=== PATIENT | female | born 1960 | race Caucasian/White ===

== ENCOUNTER 2016-11-04 10:49 | Emergency (ER) | payer BC, OTHER ==
[~2016-11-04 10:49] MED LIST: CIPR500T4 PO; INSU100V3 SQ; KETO10 PO; LEVA250T; LORT5TAB PO; PERC5TAB12 PO; ZOFR4TAB3 SL
[2016-11-04 10:51] VITALS: BP 225/107; PULSE 108; RESP 18; TEMP 97.5; O2SAT 96
[2016-11-04 11:05] VITALS: BP 160/91; PULSE 104; RESP 23; O2SAT 98
[2016-11-04] MEDS ORDERED: SODIUM CHLOR 0.9% 1000 ML INJ 1,000 ML IV SCH (11:16)
--- NOTE | 2016-11-04 11:18 | PD ---
HPI Chief Complaint: Abdominal Pain Time Seen by Provider: 11:17 Travel History International Travel<30 days: No Contact w/Intl Traveler<30days: No Traveled to known affect area: No History of Present Illness HPI 56 year old female with history of Crohn's disease, diabetes, hypertension, presents to the emergency department for evaluation of abdominal pain, nausea, vomiting worsening over the last day. Pain is inferior to the umbilicus, aching , cramping, constant. Patient states that she has been having normal bowel movements which are loose typically. No hematochezia. Emesis has been without amber red blood or coffee-ground appearance. Patient states she believes her Crohn's is "acting up." Denies any recent illnesses, fever, chills. She reports no urinary symptoms. No cough or chest congestion. No shortness of breath. No chest pain. Patient has history of cholecystectomy. No other symptoms reported this time. PFSH Past Medical History Arthritis: No Asthma: No Autoimmune Disease: No Blood Disorders: No Anxiety: No Depression: No Heart Rhythm Problems: No Cancer: No Cardiovascular Problems: No High Cholesterol: No Chemotherapy: No Chest Pain: No Congestive Heart Failure: No COPD: No Cerebrovascular Accident: No Diabetes: Yes Diminished Hearing: No Endocrine: Yes Gastrointestinal Disorders: Yes (CHROHN'S) GERD: Yes Glaucoma: No Genitourinary: Yes Headaches: No Hepatitis: No Hiatal Hernia: No Hypertension: Yes Immune Disorder: No Kidney Stones: Yes (DIAGNOSED ON December IN ED) Musculoskeletal: Yes Neurologic: No Psychiatric: No Reproductive: No Respiratory: No Immunizations Current: Yes Migraines: Yes (HX) Myocardial Infarction: No Radiation Therapy: No Renal Failure: No Seizures: No Sickle Cell Disease: No Sleep Apnea: No Thyroid Disease: No Ulcer: No Menopausal: Yes : 1 : 1 Past Surgical History Abdominal Surgery: Yes (GALLBLADDER REMOVED, COLON RESECTION) AICD: No Appendectomy: No Arteriovenous Shunt: No Body Medical Devices: CHRONS DISEASE Cardiac Surgery: No Cholecystectomy: Yes Ear Surgery: No Endocrine Surgery: No Eye Surgery: No Genitourinary Surgery: No Gynecologic Surgery: No Insulin Pump: No Joint Replacement: No Neurologic Surgery: Yes (NECK SURGERY) Oral Surgery: No Pacemaker: No Thoracic Surgery: No Other Surgery: Yes (TENDON RELEASE LEFT THUMB) Social History Alcohol Use: Yes (weekends (5-6 tonight)) Tobacco Use: Yes (1/2 TO 1 PPD) Substance Use: No Allergies-Medications (Allergen,Severity, Reaction): Coded Allergies: Remicade (Verified Allergy, Severe, Anaphylaxis, 01/24/16) Azathioprine Sodium (Verified Allergy, Intermediate, HIVES, 01/24/16) Reported Meds & Prescriptions Reported Meds & Active Scripts Active Phenergan (Promethazine HCl) 25 Mg Tab 25 Mg PO Q6H PRN Zofran ODT (Ondansetron HCl) 4 Mg Tab 4 Mg SL Q4-6H PRN FOR NAUSEA/VOMITING Cipro (Ciprofloxacin HCl) 500 Mg Tab 500 Mg PO BID Percocet 5-325 mg (Oxycodone/Acetaminophen) 1 Tab 1 Tab PO Q4-6H PRN Zofran ODT (Ondansetron HCl) 4 Mg Tab 4 Mg SL Q6H PRN FOR NAUSEA/VOMITING Toradol (Ketorolac Tromethamine) 10 Mg Tab 10 Mg PO Q6 Levaquin 250 Mg Tab (Levofloxacin) 250 Mg Tab 250 Mg .XX DAILY Percocet 5-325 mg (Oxycodone/Acetaminophen) Oxycodone 5/325 Acetaminophen Tab 1 Tab PO Q4H PRN Reported Novolin N U-100 (Insulin Human Nph) Inj 15 Units SQ BID Lortab 5/500 (Acetaminophen/Hydrocodone Bitart) 5 Mg/500 Mg Tab 1-2 Tab PO Q4 FOR PAIN Review of Systems Except as stated in HPI: all other systems reviewed are Neg Physical Exam Narrative GENERAL: Well-nourished female patient, sitting up in bed, in no acute distress. SKIN: Warm and dry. HEAD: Atraumatic. Normocephalic. EYES: Pupils equal and round. No scleral icterus. No injection or drainage. ENT: No nasal bleeding or discharge. Mucous membranes pink and moist. NECK: Trachea midline. No JVD. CARDIOVASCULAR: Tachycardic rate and rhythm. No murmur appreciated. RESPIRATORY: No accessory muscle use. Clear to auscultation. Breath sounds equal bilaterally. GASTROINTESTINAL: Abdomen soft, nondistended. Suprapubic tenderness to palpation. No rebound tenderness. No guarding. Hepatic and splenic margins not palpable. MUSCULOSKELETAL: No obvious deformities. No clubbing. No cyanosis. No edema. NEUROLOGICAL: Awake and alert. No obvious cranial nerve deficits. Motor grossly within normal limits. Normal speech. PSYCHIATRIC: Appropriate mood and affect; insight and judgment normal. Data Data Last Documented VS Vital Signs Date Time Temp Pulse Resp B/P Pulse Ox O2 Delivery O2 Flow Rate FiO2 11/04/16 15:00 74 16 131/60 98 Room Air 11/04/16 10:51 97.5 Orders Complete Blood Count With Diff (11/04/16 11:16) Comprehensive Metabolic Panel (11/04/16 11:16) Lipase (11/04/16 11:16) Prothrombin Time / Inr (Pt) (11/04/16 11:16) Act Partial Throm Time (Ptt) (11/04/16 11:16) Urinalysis - C+S If Indicated (11/04/16 11:16) Ct Abd/Pel W Iv Contrast(Rout) (11/04/16 11:16) Iv Access Insert/Monitor (11/04/16 11:16) Ecg Monitoring (11/04/16 11:16) Oximetry (11/04/16 11:16) Ondansetron Inj (Zofran Inj) (11/04/16 11:30) Sodium Chlor 0.9% 1000 Ml Inj (Ns 1000 M (11/04/16 11:16) Sodium Chloride 0.9% Flush (Ns Flush) (11/04/16 11:30) Electrocardiogram (11/04/16 11:16) Ketorolac Inj (Toradol Inj) (11/04/16 11:30) Morphine Inj (Morphine Inj) (11/04/16 12:45) Iohexol 350 Inj (Omnipaque 350 Inj) (11/04/16 13:18) Prochlorperazine Inj (Compazine Inj) (11/04/16 14:15) Diphenhydramine Inj (Benadryl Inj) (11/04/16 14:15) Labs Laboratory Tests Test 11/04/16 11/04/16 11/04/16 11:30 12:00 14:00 White Blood Count 8.2 TH/MM3 Red Blood Count 4.93 MIL/MM3 Hemoglobin 15.1 GM/DL Hematocrit 44.1 % Mean Corpuscular Volume 89.5 FL Mean Corpuscular Hemoglobin 30.6 PG Mean Corpuscular Hemoglobin 34.2 % Concent Red Cell Distribution Width 13.1 % Platelet Count 221 TH/MM3 Mean Platelet Volume 7.7 FL Neutrophils (%) (Auto) 67.9 % Lymphocytes (%) (Auto) 21.9 % Monocytes (%) (Auto) 7.0 % Eosinophils (%) (Auto) 2.3 % Basophils (%) (Auto) 0.9 % Neutrophils # (Auto) 5.6 TH/MM3 Lymphocytes # (Auto) 1.8 TH/MM3 Monocytes # (Auto) 0.6 TH/MM3 Eosinophils # (Auto) 0.2 TH/MM3 Basophils # (Auto) 0.1 TH/MM3 CBC Comment DIFF FINAL Differential Comment Sodium Level 136 MEQ/L Potassium Level 3.4 MEQ/L Chloride Level 102 MEQ/L Carbon Dioxide Level 23.2 MEQ/L Anion Gap 11 MEQ/L Blood Urea Nitrogen 9 MG/DL Creatinine 1.07 MG/DL Estimat Glomerular Filtration 53 ML/MIN Rate Random Glucose 301 MG/DL Calcium Level 8.4 MG/DL Total Bilirubin 0.6 MG/DL Aspartate Amino Transf 18 U/L (AST/SGOT) Alanine Aminotransferase 31 U/L (ALT/SGPT) Alkaline Phosphatase 96 U/L Total Protein 7.2 GM/DL Albumin 3.4 GM/DL Lipase 181 U/L Prothrombin Time 10.8 SEC Prothromb Time International 1.0 RATIO Ratio Activated Partial 26.5 SEC Thromboplast Time Urine Color YELLOW Urine Turbidity CLEAR Urine pH 6.0 Urine Specific [place] GREATER THAN 1.050 Urine Protein 30 mg/dL Urine Glucose (UA) 1000 mg/dL Urine Ketones NEG mg/dL Urine Occult Blood NEG Urine Nitrite NEG Urine Bilirubin NEG Urine Urobilinogen LESS THAN 2.0 MG/DL Urine Leukocyte Esterase NEG Urine RBC 2 /hpf Urine WBC 5 /hpf Urine Squamous Epithelial 1 /hpf Cells Urine Mucus FEW /lpf Microscopic Urinalysis Comment CULT NOT INDICATED MDM Medical Decision Making Medical Screen Exam Complete: Yes Emergency Medical Condition: Yes Medical Record Reviewed: Yes Differential Diagnosis Crohn's exacerbation versus gastroenteritis versus gastritis versus obstruction Narrative Course 56 year-old female presents to emergency department for evaluation of abdominal pain, nausea, vomiting worsening over the last day. She was given antiemetics and IV fluid here in the emergency department. CBC is without concern. CMP is with hyperglycemia 301, otherwise without acute concern. Urinalysis with 3 proteinuria, without glucosuria, ischemia this. Specific gravity is 1.050. CT imaging of the abdomen and pelvis shows a 3.2 x 3.4 cm heterogeneous enhancing left renal mass highly suspicious for malignancy. There is a portion of this mass which extends superiorly up into the renal hilum as well as such radiology does not believe be amenable to cryoablation. There is a small ventral hernia. No findings to indicate bowel obstruction. I discussed the patient my attending physician Dr. Rich advised oncology consult. I discussed the patient with Dr. Woods, oncology on-call. Due to the area being not amenable to cryoablation, he defers to urology. I discussed the patient was Dr. Lopez, he states this can be followed up outpatient. The patient is provided contact information to his office. She has not vomited since her second dose of antibiotics. She agrees to follow-up and will return immediately with any acute worsening of symptoms. Diagnosis Primary Impression: Nausea & vomiting Qualified Code: R11.14 - Bilious vomiting with nausea Additional Impressions: Left renal mass History of Crohn's disease Referrals: Kd Lopez MD call for appointment It is really important that you contact the office tomorrow for an appointment for follow-up in regards to your CT scan. Primary Care Physician Patient Instructions: Acute Nausea and Vomiting (ED), General Instructions Additional Instructions: Follow-up with Dr. Lopez , urologist in regards to the mass identified on your left kidney Follow-up with your primary care provider Maintain adequate oral hydration Return immediately to the emergency department with any acute worsening of symptoms Med/Other Pt SpecificInfo: Prescription(s) given Scripts Promethazine (Phenergan)25 Mg Tab25 Mg PO Q6H PRN (Nausea/Vomiting) #15 TAB Ref 0 Prov:Tita Paez 11/04/16 Disposition: 01 DISCHARGE HOME Condition: Stable Tita Paez Nov 04, 2016 11:18
[2016-11-04 11:19] VITALS: RESP 16; O2SAT 98
[2016-11-04] MEDS: SODIUM CHLORIDE 0.9% FLUSH 10 ML FLUSH IV FLUSH PRN ×3 (11:25→14:24)
[2016-11-04] MEDS ORDERED: ONDANSETRON HCL 4 MG/2 ML VIAL IVP ONE (11:30)
[2016-11-04] MEDS ORDERED: KETOROLAC TROMETHAMINE 30 MG/ML (IVP) VIAL IVP ONE (11:30)
[2016-11-04 11:44] LABS: AUTOMATED NEUTROPHIL # 5.6 TH/MM3 (1.8-7.7); BASOPHIL # 0.1 TH/MM3 (0-0.2); BASOPHIL % 0.9 % (0.0-2.0); EOSINOPHIL # 0.2 TH/MM3 (0-0.4); EOSINOPHIL % 2.3 % (0.0-4.0); HEMATOCRIT 44.1 % (35.0-46.0); HEMO FLAGS DIFF FINAL; LYMPH % 21.9 % (9.0-44.0); LYMPHOCYTE # 1.8 TH/MM3 (1.0-4.8); MEAN CELL VOLUME 89.5 FL (80.0-100.0); MEAN CORPUSCULAR HEMOGLOBIN 30.6 PG (27.0-34.0); MEAN CORPUSCULAR HGB CONC 34.2 % (32.0-36.0); NEUT % 67.9 % (16.0-70.0); PLATELET COUNT 221 TH/MM3 (150-450); RED BLOOD COUNT 4.93 MIL/MM3 (4.00-5.30); RED CELL DISTRIBUTION WIDTH 13.1 % (11.6-17.2); WHITE BLOOD COUNT 8.2 TH/MM3 (4.0-11.0)
[2016-11-04 12:00] VITALS: BP 175/91; PULSE 104; RESP 22; O2SAT 98
[2016-11-04 12:02] LABS: ANION GAP 11 MEQ/L (5-15); AST (GOT) 18 U/L (15-37); BICARBONATE 23.2 MEQ/L (21.0-32.0); BLOOD UREA NITROGEN 9 MG/DL (7-18); CHLORIDE 102 MEQ/L (98-107); GLOMERULAR FILTRATION RATE 53 ML/MIN (>89); POTASSIUM 3.4 MEQ/L (3.5-5.1); SODIUM (NA) 136 MEQ/L (136-145)
[2016-11-04 12:05] LABS: ALKALINE PHOSPHATASE 96 U/L (45-117); ALT (GPT) 31 U/L (10-53); TOTAL BILIRUBIN ADULT 0.6 MG/DL (0.2-1.0)
[2016-11-04 12:29] LABS: APTT (PATIENT) 26.5 SEC (24.3-30.1); PROTHROMBIN TIME - PATIENT 10.8 SEC (9.8-11.6)
[2016-11-04] MEDS ORDERED: MORPHINE SULFATE 4 MG/ML INJ IV PUSH ONE (12:45)
[2016-11-04] MEDS ORDERED: IOHEXOL 350 MG/ML 10 ML VIAL (for RAD DIAG) IV ONE (13:18)
--- NOTE | 2016-11-04 13:31 | RADRPT ---
EXAM DATE/TIME: 11/04/2016 12:56 [facility] COMPARISON: CT ABDOMEN & PELVIS W CONTRAST, January 24, 2016, 23:46. INDICATIONS : Lower abdomen pain with nausea and vomiting since Wednesday. IV CONTRAST: 94 cc Omnipaque 350 (iohexol) IV ORAL CONTRAST: No oral contrast ingested. RADIATION DOSE: 21.99 CTDIvol (mGy) MEDICAL HISTORY : Crohn's disease. Hypertension. Diabetes SURGICAL HISTORY : Cholecystectomy. ENCOUNTER: Initial ACUITY: 4 - 6 days PAIN SCALE: 10/10 LOCATION: Abdomen TECHNIQUE: Volumetric scanning of the abdomen and pelvis was performed. Using automated exposure control and ad justment of the mA and/or kV according to patient size, radiation dose was kept as low as reasonably achievable to obtain optimal diagnostic quality images. FINDINGS: The limited portion of the lung base visualized is clear. The appearance of the liver, spleen, pancreas, adrenal glands and right kidney is within normal limit s. The patient is post cholecystectomy. The exam demonstrates a 3.2 x 3.4 cm heterogeneously enhancing mass in the lower pole of the left kid abhay. This is highly suspicious for malignancy. This has slightly increased in size compared to previo us dated 01/24/16. There is no free intraperitoneal air. No free intraperitoneal fluid is identified. There is no retrop eritoneal lymphadenopathy. The aorta is normal in caliber. The visualized loops of small and large stephanie wel demonstrate changes suggesting previous partial colectomy but are otherwise unremarkable in appea lise. No findings to indicate bowel obstruction are seen. There is a small umbilical hernia in anterior abdominal wall. There is no free fluid within the pelvis. No iliac or inguinal adenopathy is present. There are degenerative changes throughout the lumbar spine. CONCLUSION: 1. 3.2 x 3.4 cm heterogeneous enhancing left renal mass highly suspicious for malignancy. There is a portion of this mass which extends superiorly up into the renal hilum as well as such, I do not belie ve it would be amenable to cryoablation. 2. Small ventral hernia. 3. No findings to indicate bowel obstruction. Raj Farnsworth MD on November 04, 2016 at 13:24 Board Certified Radiologist. This report was verified electronically.
[2016-11-04 14:00] VITALS: BP 152/67; PULSE 84; RESP 20; O2SAT 98
[2016-11-04] MEDS ORDERED: diphenhydrAMINE HCL 50 MG/ML VIAL IV PUSH ONE (14:15)
[2016-11-04] MEDS ORDERED: PROCHLORPERAZINE INJ 10 MG/2 ML VIAL IVS ONE (14:15)
[2016-11-04 14:59] LABS: BLOOD, URINE NEG (NEG); GLUCOSE,URINE 1000 mg/dL (NEG); KETONE, URINE NEG (NEG); MUCUS URINE FEW /lpf (OCC); NITRITE,URINE NEG (NEG); SQUAMOUS EPITHELIAL CELL URINE 1 /hpf (0-5); URINE COLOR YELLOW (YELLW/STRAW)
[2016-11-04 15:00] VITALS: BP 131/60; PULSE 74; RESP 16; O2SAT 98
[2016-11-04 15:00] LABS: COMMENT (UR) CULT NOT INDICATED; CULTURE IF INDICATED CULT NOT INDICATED
[2016-11-04] MEDS ORDERED: PROM25TA5 PO (15:10)
--- NOTE | 2016-11-05 14:22 | EKG ---
Date Performed: 11/04/2016 Time Performed: 11:33:42 PTAGE: 56 years EKG: Sinus rhythm RIGHT ATRIAL ENLARGEMENT POSSIBLE LEFT ATRIAL ENLARGEMENT BORDERLINE LEFT AXIS DEVIATION INCOMPLETE RIGHT BUNDLE BRANCH BLOCK Compared to the previous tracing axis has shifted leftward and incomplete R ight bundle branch block is new ABNORMAL ECG PREVIOUS TRACING : 03/12/2011 14.11 DOCTOR: Papito Zapata Interpretating Date/Time 11/05/2016 14:21:32
[2016-11-10] MEDS ORDERED: ZOFR4TAB PO (10:10)
[2016-11-10] MEDS ORDERED: NOVOLOGP2 SQ (10:10)
[2016-11-10] MEDS ORDERED: HYDR-2376 PO (10:10)
== END 2016-11-04 15:33 | disposition home or self-care (01) ==
LOC: NEPE 10:49
DX: R11.2 Nausea with vomiting, unspecified (principal); N28.89 Other specified disorders of kidney and ureter; K50.90 Crohn's disease, unspecified, without complications; E11.9 Type 2 diabetes mellitus without complications; I10 Essential (primary) hypertension; F17.210 Nicotine dependence, cigarettes, uncomplicated; R94.31 Abnormal electrocardiogram [ECG] [EKG]
CPT/HCPCS: 74177; 80053; 81001; 83690; 85025; 85610; 85730; 93005; 96361; 96374; 96375; 99284; J0780; J1200; J1885; J2270; J2405; J7030; Q9967

== ENCOUNTER 2016-11-24 13:36 | Inpatient (IN) | payer OTHER ==
[~2016-11-24] VITALS: Ht 167.6 cm; Wt 87.0 kg
[~2016-11-24 13:36] MED LIST changes: -CIPR500T4 PO; -INSU100V3 SQ; -KETO10 PO; -LEVA250T; -LORT5TAB PO; -PERC5TAB12 PO; +ZOFR4TAB PO; -ZOFR4TAB3 SL
[2016-11-25] MEDS ORDERED: ASAC800T PO (07:16)
[2016-11-25] MEDS ORDERED: HYDR1CAP PO (07:16)
[2016-11-25] MEDS ORDERED: NOVO7030P2 SQ (07:16)
[2016-12-22 10:00] VITALS: BP 165/85; PULSE 96; RESP 18; TEMP 98.6; O2SAT 96
[2016-12-22] MEDS ORDERED: SODIUM CHLORID 0.9% 500 ML IV PRN (10:45)
[2016-12-22] MEDS ORDERED: POVIDONE IODINE 5% (ANTISEPSIS KIT) 4 APPLICATIONS EACH NARE PRN (10:45)
[2016-12-22] MEDS ORDERED: LACTATED RINGER'S 1000 ML IV PRN (10:45)
[2016-12-22] MEDS ORDERED: INSULIN HUMAN REGULAR 1,000 UNITS/10 ML VIAL SQ PRN (10:45)
[2016-12-22] MEDS ORDERED: METOPROLOL TARTRATE 25 MG TAB PO PRN (10:45)
[2016-12-22] MEDS ORDERED: CHLORHEXIDINE GLUCONATE 2 % 1 PACK (2 CLOTHS) TOPICAL PRN (10:45)
[2016-12-22] MEDS ORDERED: ceFAZolin 2 GM PREMIX 50 ML ONE (10:48)
[2016-12-22] MEDS ORDERED: fentaNYL CITRATE 250 MCG/5 ML AMP ONE ×2 (11:25→13:46)
[2016-12-22] MEDS ORDERED: FAMOTIDINE 20 MG/2 ML VIAL ONE (11:25)
[2016-12-22] MEDS ORDERED: MIDAZOLAM HCL 2 MG/2 ML VIAL ONE (11:25)
[2016-12-22] MEDS ORDERED: ACETAMINOPHEN 1000 MG/100 ML VIAL IV ONE (11:25)
[2016-12-22] MEDS ORDERED: DICLOFENAC SODIUM 37.5 MG/ML VIAL IV PUSH ONE (11:25)
[2016-12-22] MEDS ORDERED: DEXAMETHASONE SOD PHOS 4 MG/ML VIAL ONE (11:26)
[2016-12-22] MEDS ORDERED: HYDROmorphone HCL PF 2 MG/ML VIAL ONE ×2 (11:26→15:19)
[2016-12-22] MEDS ORDERED: ONDANSETRON HCL 4 MG/2 ML VIAL IV PUSH ONE (12:00)
[2016-12-22] MEDS ORDERED: PROPOFOL 200 MG/20 ML AMP IV ONE (12:00)
[2016-12-22] MEDS ORDERED: LACTATED RINGER'S 1000 ML INJ 1,000 ML IV ONE (12:00)
[2016-12-22] MEDS ORDERED: PHENYLEPH/NS 1000 MCG/10 ML SYR IV ONE (12:00)
--- NOTE | 2016-12-22 17:13 | PD.OP ---
Operative Report Date of Surgery: December 22, 2016 Preoperative Diagnosis: (1) Left renal mass Postoperative Diagnosis: (1) Left renal mass Procedure: Robot-assisted laparoscopic left radical nephrectomy Anesthesia: General Surgeon: Kd Lopez Postal Carrier(s): David Ornelas Operation and Findings: Indication for procedure: Case of a pleasant 56-year-old female with a 3.4 cm left renal mass who presents today to undergo a robot-assisted laparoscopic left radical nephrectomy. The mass was biopsied and confirmed to be a renal cell carcinoma. Operative procedure in detail: Patient was brought to the operating suite and placed supine on the OR table. She was then placed under general endotracheal anesthesia. She was next repositioned in the right lateral recumbent position and held in place with a beanbag. The surgical table was flexed to drop the patient's pelvis and gain greater surface area to place the laparoscopic ports. After appropriate timeout was undertaken I proceeded with placement of the robotic ports. The camera port was placed using the visual obturator just superior and lateral to the umbilicus to the left of the midline without difficulty. The remaining 3 robotic arm ports as well as the children's nursery assistant port were then placed under direct vision. The per diem physical therapist assistant port was placed at the level of the umbilicus. The FloSeal device was connected at the children's nursery assistant port and pneumoperitoneum was maintained at 15 mmHg. I next repositioned myself over at the robotic console and Dr. David Ornelas remained at the bedside to academic support assistant. I next proceeded with mobilizing the left colon along the line of Toldt and reflected it medially to expose the retroperitoneum. The kidney was identified and sharply and bluntly mobilized. The ureter was identified and tracked upwards towards the hilum to identify the renal vasculature. The renal hilar vessels were then divided and ligated utilizing the endo-surgical stapling device. The ureter was next transected between Hemoloc clips. 3 clips were utilized with one on the specimen side. The kidney was next further mobilized avulsed attachments and the left adrenal gland was identified and spared. The specimen was next placed in a Endo Catch specimen bag. The pneumoperitoneum was dropped down to 5 illness mercury and careful inspection was made. There was a small maybe 3 mm red noted within the splenic capsule which was oozing a small amount of blood. The site was covered with Surgicel and Erika applied with excellent hemostasis. No other evidence of active bleeding was noted. At this point in time the robot was undocked and I repositioned myself over at the bedside after scrubbing for a second time. The children's nursery assistant port site at the midline level was extended inferiorly for a total distance of approximately 4 cm and the surgical specimen within the Endo Catch bag was delivered through this site. A 10 cm KELLI drain was placed via one of the robotic port sites to the left lower quadrant and gently finger guided in proper position and the port removed. The drain was secured to the skin with 2-0 nylon suture material. The midline incision was then closed by reapproximating the fascia utilizing #1 PDS suture. The skin edges were then closed in subcuticular fashion using 4-0 undyed Vicryl. The remaining 2 robotic arm port sites within close by reapproximating the skin with 4. 0 Vicryl as well in subcuticular fashion. Steri-Strips were applied at the wound sites. The patient tolerated the procedure without complications and was transferred to the PACU in satisfactory condition. Total estimated blood loss was between 500 and 600 cc. Kd Lopez MD December 22, 2016 17:13
[2016-12-22] MEDS ORDERED: GLUCAGON 1 MG/ML VIAL OTHER PRN (17:15)
[2016-12-22] MEDS ORDERED: SODIUM CHLORIDE 0.9% FLUSH 10 ML FLUSH IV FLUSH PRN (17:15)
[2016-12-22] MEDS ORDERED: DEXTROSE 50% IN WATER 50 ML VIAL(D50) IV PUSH PRN (17:15)
[2016-12-22] MEDS ORDERED: ONDANSETRON HCL 4 MG/2 ML VIAL IV PUSH PRN (17:15)
[2016-12-22] MEDS ORDERED: NALOXONE HCL 0.4 MG/ML AMP IV PRN ×2 (17:15)
[2016-12-22] MEDS ORDERED: Post-op Orders (for Pharmacy) MISC XX ONE (17:15)
[2016-12-22] MEDS ORDERED: DO NOT ADM ANY ANTICOAGULANT DRUGS PRN (18:00)
--- NOTE | 2016-12-22 18:08 | RADRPT ---
EXAM DATE/TIME: 12/22/2016 17:48 [facility] COMPARISON: No previous studies available for comparison. INDICATIONS : Central line placement. MEDICAL HISTORY : None. SURGICAL HISTORY : None. ENCOUNTER: Initial ACUITY: 1 day PAIN SCORE: Non-responsive. LOCATION: Bilateral chest FINDINGS: Right neck central line is present in good position with tip overlying SVC. No evidence of pneumothor ax or other complication of placement. Lungs are symmetrically aerated and clear. No pleural effusion is present. The cardiac contours are satisfactory. CONCLUSION: Satisfactory central line position. No complication. Kofi Shine MD on December 22, 2016 at 18:05 Board Certified Radiologist. This report was verified electronically.
[2016-12-22] MEDS: LACTATED RINGER'S 1000 ML INJ 1,000 ML IV SCH (18:09)
[2016-12-22] MEDS: HYDROmorphone HCL PCA 6 MG/30 ML IV SCH ×2 (18:09→23:28)
[2016-12-22] MEDS ORDERED: *morphine SULFATE 8 MG/ML PERIprocedure ONLY ONE (18:15)
[2016-12-22 20:00] VITALS: BP 121/56; PULSE 84; RESP 19; TEMP 98.4; O2SAT 95
[2016-12-22] MEDS: INSULIN HUMAN NPH/R 70/30 1,000 UNITS/10 ML VIAL SQ SCH (21:00)
[2016-12-22] MEDS: INSULIN NovoLIN REGULAR SUPPLEMENTAL SCALE SQ SCH (21:00)
[2016-12-22 21:20] VITALS: O2SAT 98
[2016-12-22] MEDS: SODIUM CHLORIDE 0.9% FLUSH 10 ML FLUSH IV FLUSH SCH (21:30)
[2016-12-22] MEDS: PCA - TOTAL MG DILAUDID DELIVERED PER SHIFT OTHER SCH (22:00)
[2016-12-22 23:30] VITALS: BP 102/61; PULSE 78; RESP 18; TEMP 98; O2SAT 96
[2016-12-23] VITALS (7 sets, daily range): BP systolic 110–173; BP diastolic 58–71; PULSE 72–102; RESP 17–20; TEMP 97.5–100.9; O2SAT 91–98
[2016-12-23] MEDS: LACTATED RINGER'S 1000 ML INJ 1,000 ML IV SCH ×3 (01:47→16:06)
[2016-12-23] MEDS: PCA - TOTAL MG DILAUDID DELIVERED PER SHIFT OTHER SCH ×3 (06:00→22:00)
[2016-12-23 06:32] LABS: HEMATOCRIT 34.7 % (35.0-46.0); REVIEW FLAG FINAL
[2016-12-23] MEDS: INSULIN NovoLIN REGULAR SUPPLEMENTAL SCALE SQ SCH ×4 (06:36→22:08)
[2016-12-23 07:00] LABS: BICARBONATE 29.5 MEQ/L (21.0-32.0); POTASSIUM 3.8 MEQ/L (3.5-5.1)
[2016-12-23] MEDS: MESALAMINE HD 800 MG DELAYED RELEASE TAB PO SCH ×3 (07:57→16:03)
[2016-12-23] MEDS: INSULIN HUMAN NPH/R 70/30 1,000 UNITS/10 ML VIAL SQ SCH ×2 (08:00→22:08)
[2016-12-23] MEDS: SODIUM CHLORIDE 0.9% FLUSH 10 ML FLUSH IV FLUSH SCH ×2 (08:05→19:45)
[2016-12-23] MEDS: HYDROmorphone HCL PCA 6 MG/30 ML IV SCH (11:11)
--- NOTE | 2016-12-23 12:09 | HHI.PR ---
Subjective Patient symptoms today Postoperative day #1 Pain adequately controlled Feels thirsty Passing flatus, denies bowel movement Has been ambulating Objective Vital Signs Vital Signs Date Time Temp Pulse Resp B/P Pulse Ox O2 Delivery O2 Flow Rate FiO2 12/23/16 08:00 97.9 74 17 110/58 96 12/23/16 06:00 16 12/23/16 04:12 97.5 72 19 117/59 98 12/22/16 23:30 98.0 78 18 102/61 96 12/22/16 23:28 16 12/22/16 22:00 17 12/22/16 21:20 98 Nasal Cannula 2.00 12/22/16 20:00 98.4 84 19 121/56 95 12/22/16 19:50 98.7 88 10 120/55 98 Nasal Cannula 2 12/22/16 19:00 90 11 123/58 98 Nasal Cannula 2 12/22/16 18:30 91 11 119/56 97 Nasal Cannula 2 12/22/16 18:15 95 11 158/66 95 Nasal Cannula 3 12/22/16 18:09 15 12/22/16 18:00 96 15 143/64 96 Nasal Cannula 3 12/22/16 17:45 96 15 137/61 98 Nasal Cannula 3 142/64 12/22/16 17:34 99.3 98 18 137/63 98 Nasal Cannula 3 Intake & Output 12/23/16 12/23/16 07:00 19:00 Intake Total 2615 ml 653 ml Output Total 470 ml 30 ml Balance 2145 ml 623 ml Intake Oral 0 ml IV Total 2615 ml 653 ml Output Urine Total 370 ml Drainage Total 100 ml 30 ml # Bowel Movements 0 Result Diagram: 12/23/16 0620 12/23/16 0620 Objective Remarks Minimal drainage from KELLI site Abdomen soft, nondistended, nontender Wound sites clean and dry Extremities well-perfused, nontender Medications and IVs Current Medications Medications (Trade) Dose Ordered Sig/Leonor Route Start Time Stop Time Status Last Admin Sodium Chloride 500 ml @ 30 mls/hr [id number] PRN IV 12/22/16 10:45 12/25/16 10:44 (Lr 1000 ml Inj) 1,000 ml @ 125 mls/hr Q8H IV 12/22/16 18:00 12/23/16 11:01 (NS Flush) 2 ml UNSCH PRN IV FLUSH 12/22/16 17:15 Sodium Chloride 2 ml 2 ml BID IV FLUSH 12/22/16 21:00 12/23/16 08:05 (Ancef Inj/NS Inj) 100 ml @ 200 mls/hr Q8H IV 12/22/16 20:00 12/23/16 12:29 12/23/16 10:59 (Heparin Inj) 5,000 units Q12H SQ 12/23/16 17:00 (Narcan Inj) 0.4 mg UNSCH PRN IV 12/22/16 17:15 (Narcan Inj) 0.4 mg UNSCH PRN IV 12/22/16 17:15 (Dilaudid MANAGER WELLNESS Inj) 6 mg UNSCH IV 12/22/16 17:15 12/23/16 11:11 MANAGER WELLNESS Dosage Infused (Pha) 1 Q8HR OTHER 12/22/16 17:15 12/23/16 11:49 (Zofran Inj) 4 mg Q6HR PRN IV PUSH 12/22/16 17:15 (D50w (Vial) Inj) 25 ml UNSCH PRN IV PUSH 12/22/16 17:15 (Glucagon Inj) 1 mg UNSCH PRN OTHER 12/22/16 17:15 (NovoLIN 70/30 INJ) 14 units BID SQ 12/22/16 21:00 12/23/16 08:00 (Asacol Hd Dr) 2,400 mg TID PO 12/22/16 18:00 12/23/16 07:57 Miscellaneous Information ALL NURSING DEPARTME... UNSCH PRN .XX 12/22/16 18:00 12/23/16 17:59 Assessment and Plan Assessment and Plan Urologic impression: Status post left radical nephrectomy with expected postoperative course. Plan: #1 clear liquid diet #2 encourage ambulation #3 DC KELLI drain #4 DC Cadena #5 check pathology when available Kd Lopez MD December 23, 2016 12:09
[2016-12-23] MEDS: HEPARIN SODIUM - SQ 10,000 UNITS/ML VIAL SQ SCH (16:08)
[2016-12-24] VITALS (8 sets, daily range): BP systolic 119–146; BP diastolic 64–78; PULSE 68–136; RESP 16–18; TEMP 96.8–98.9; O2SAT 86–95
[2016-12-24] MEDS: LACTATED RINGER'S 1000 ML INJ 1,000 ML IV SCH ×2 (01:59→10:44)
[2016-12-24] MEDS: HYDROmorphone HCL PCA 6 MG/30 ML IV SCH (02:02)
[2016-12-24] MEDS: ZOLPIDEM TARTRATE 5 MG TAB PO PRN ×2 (02:03→22:09)
[2016-12-24] MEDS: HEPARIN SODIUM - SQ 10,000 UNITS/ML VIAL SQ SCH ×2 (05:56→17:06)
[2016-12-24] MEDS: PCA - TOTAL MG DILAUDID DELIVERED PER SHIFT OTHER SCH ×3 (05:56→22:00)
[2016-12-24] MEDS: INSULIN NovoLIN REGULAR SUPPLEMENTAL SCALE SQ SCH ×4 (05:57→21:00)
[2016-12-24] MEDS: SODIUM CHLORIDE 0.9% FLUSH 10 ML FLUSH IV FLUSH SCH ×2 (08:52→21:00)
[2016-12-24] MEDS: MESALAMINE HD 800 MG DELAYED RELEASE TAB PO SCH ×3 (08:52→18:08)
[2016-12-24] MEDS: INSULIN HUMAN NPH/R 70/30 1,000 UNITS/10 ML VIAL SQ SCH ×2 (08:54→21:00)
--- NOTE | 2016-12-24 13:27 | HHI.PR ---
Subjective Patient symptoms today Postoperative day #2 Ambulating well Tolerating clear liquid diet Passing flatus and had a loose bowel movement today Objective Vital Signs Vital Signs Date Time Temp Pulse Resp B/P Pulse Ox O2 Delivery O2 Flow Rate FiO2 12/24/16 12:27 93 21 12/24/16 12:00 97.6 80 17 139/64 86 12/24/16 08:00 97.0 80 17 139/65 12/24/16 05:56 18 12/24/16 04:46 97.3 86 18 141/64 94 12/24/16 02:02 18 12/24/16 00:25 98.9 68 16 119/68 95 12/23/16 22:00 16 12/23/16 20:00 100.9 98 20 145/65 91 12/23/16 16:21 94 21 12/23/16 16:00 98.3 102 18 173/71 93 12/23/16 14:20 94 Intake & Output 12/24/16 12/24/16 07:00 19:00 Intake Total 2349 ml Output Total 850 ml Balance 1499 ml Intake Oral 240 ml IV Total 2109 ml Output Urine Total 850 ml # Bowel Movements 0 Result Diagram: 12/23/16 0620 12/23/16 0620 Objective Remarks Minimal drainage from KELLI site Abdomen soft, nondistended, nontender Wound sites clean and dry Extremities well-perfused, nontender Medications and IVs Current Medications Medications (Trade) Dose Ordered Sig/Leonor Route Start Time Stop Time Status Last Admin (NS Flush) 2 ml UNSCH PRN IV FLUSH 12/22/16 17:15 (NS Flush) 2 ml BID IV FLUSH 12/22/16 21:00 12/23/16 08:05 (Heparin Inj) 5,000 units Q12H SQ 12/23/16 17:00 12/24/16 05:56 (Narcan Inj) 0.4 mg UNSCH PRN IV 12/22/16 17:15 (Narcan Inj) 0.4 mg UNSCH PRN IV 12/22/16 17:15 (Dilaudid DRUM DYEING MACHINE OPERATOR Inj) 6 mg UNSCH IV 12/22/16 17:15 12/24/16 02:02 DRUM DYEING MACHINE OPERATOR Dosage Infused (Pha) 1 Q8HR OTHER 12/22/16 17:15 12/24/16 05:56 (Zofran Inj) 4 mg Q6HR PRN IV PUSH 12/22/16 17:15 12/23/16 16:02 (D50w (Vial) Inj) 25 ml UNSCH PRN IV PUSH 12/22/16 17:15 (Glucagon Inj) 1 mg UNSCH PRN OTHER 12/22/16 17:15 (NovoLIN 70/30 INJ) 14 units BID SQ 12/22/16 21:00 12/24/16 08:54 (Asacol Hd Dr) 2,400 mg TID PO 12/22/16 18:00 12/24/16 08:52 (Ambien) 5 mg HS PRN PO 12/23/16 12:15 12/24/16 02:03 Assessment and Plan Assessment and Plan Urologic impression: Status post left radical nephrectomy with expected postoperative course. Plan: #1 advanced to 1800-calorie ADA diet #2 encourage ambulation #3 DC TLC #4 check pathology when available #5 anticipate discharge home tomorrow Kd Lopez MD December 24, 2016 13:27
[2016-12-24] MEDS ORDERED: oxyCODONE/ACETAMINOPHEN 5 MG/325 MG TAB PO PRN (13:30)
[2016-12-24] MEDS: oxyCODONE/ACETAMINOPHEN 5 MG/325 MG TAB PO PRN (19:52)
[2016-12-25] VITALS: BP 162/71; PULSE 96; RESP 18; TEMP 98.4; O2SAT 92
[2016-12-25] MEDS: oxyCODONE/ACETAMINOPHEN 5 MG/325 MG TAB PO PRN (04:36)
[2016-12-25] MEDS: HEPARIN SODIUM - SQ 10,000 UNITS/ML VIAL SQ SCH (04:37)
[2016-12-25] MEDS: PCA - TOTAL MG DILAUDID DELIVERED PER SHIFT OTHER SCH (06:00)
[2016-12-25] MEDS: INSULIN NovoLIN REGULAR SUPPLEMENTAL SCALE SQ SCH ×2 (07:00→11:00)
[2016-12-25 08:00] VITALS: BP 120/63; PULSE 89; RESP 18; TEMP 97.2; O2SAT 91
[2016-12-25 09:00] VITALS: O2SAT 93
[2016-12-25] MEDS: INSULIN HUMAN NPH/R 70/30 1,000 UNITS/10 ML VIAL SQ SCH (09:00)
[2016-12-25] MEDS: MESALAMINE HD 800 MG DELAYED RELEASE TAB PO SCH ×2 (09:03→12:51)
[2016-12-25] MEDS: SODIUM CHLORIDE 0.9% FLUSH 10 ML FLUSH IV FLUSH SCH (09:04)
[2016-12-25 12:00] VITALS: BP 139/66; PULSE 82; RESP 17; TEMP 98.6; O2SAT 93
[2016-12-25] MEDS ORDERED: PERC5TAB12 PO (12:51)
--- NOTE | 2016-12-25 12:55 | HHI.DS ---
Discharge Summary Admission Date December 22, 2016 at 10:11 Discharge Date: December 25, 2016 Admitting Diagnosis Left renal cell cancer (1) Renal cell carcinoma of left kidney Diagnosis: Principal Procedures Robot-assisted laparoscopic left radical nephrectomy Brief History 56-year-old female with recent diagnosis of a left renal mass which was biopsied and confirmed to be a renal cell carcinoma. Patient admitted to undergo a robot-assisted laparoscopic left radical nephrectomy. Please refer to admission history and physical for additional history and pertinent physical findings. CBC/BMP: 12/23/16 0620 12/23/16 0620 Significant Findings Laboratory Tests Test 12/23/16 06:20 Hemoglobin 11.4 GM/DL (11.6-15.3) Hematocrit 34.7 % (35.0-46.0) Estimat Glomerular Filtration 67 ML/MIN (>89) Rate Random Glucose 130 MG/DL (74-106) Calcium Level 8.0 MG/DL (8.5-10.1) PE at Discharge Abdomen soft, nondistended, nontender Wound sites clean and dry with exception of small amount serous drainage at KELLI drain site Extremities well-perfused, nontender Hospital Course Patient admitted for definitive management of a biopsy-proven left renal cell cancer. Patient underwent the procedure as outlined above without complications. Had uneventful postoperative course and was discharged home on postoperative day #3. At the time of discharge patient was able any well, tolerating oral intake well and pain managed with oral meds. Final pathology demonstrated left renal cell carcinoma with negative surgical margins. Pt Condition on Discharge: Good Discharge Disposition: Discharge Home Discharge Instructions DIET: Follow Instructions for: Diabetic Diet Activities you can perform: Shower Only-No Bath, See Additionl Instruction Additional Activity Instructio: No strenuous activity or lifting more than 15 pounds until further notice Additional Information Office f/u in 2 to 3 weeks. Kd Lpoez MD December 25, 2016 12:55
== END 2016-12-25 13:27 | disposition home or self-care (01) | DRG 657 ==
LOC: HSDI 12-22 10:11 → N07A 12-22 20:06
PROVIDERS: ADMIT Urology; ATTEND Urology
PROC: 8E0W4CZ Robotic Assisted Procedure of Trunk Region, Percutaneous Endoscopic Approach (ICD-10-PCS; 2016-12-22)
PROC: 0TT14ZZ Resection of Left Kidney, Percutaneous Endoscopic Approach (ICD-10-PCS; principal; 2016-12-22 11:39)
DX: C64.2 Malignant neoplasm of left kidney, except renal pelvis (principal); K50.90 Crohn's disease, unspecified, without complications; I10 Essential (primary) hypertension; F17.210 Nicotine dependence, cigarettes, uncomplicated; E11.9 Type 2 diabetes mellitus without complications; Z79.4 Long term (current) use of insulin; E66.9 Obesity, unspecified; Z68.31 Body mass index [BMI] 31.0-31.9, adult
CPT/HCPCS: 71010; 80048; 82948; 85014; 85018; 86850; 86900; 86901; 86920; 88307; 94150; J0131; J0690; J1100; J1130; J1170; J1644; J1815; J2250; J2270; J2370; J2405; J3010; J7120

== ENCOUNTER 2016-11-25 07:00 | Day surgery (SDC) | payer OTHER ==
[2016-11-25] VITALS (9 sets, daily range): BP systolic 110–176; BP diastolic 56–74; PULSE 72–87; RESP 16–20; TEMP 97.4–98.6; O2SAT 93–99
[~2016-11-25] VITALS: Ht 167.6 cm; Wt 86.4 kg
[~2016-11-25 07:00] MED LIST changes: +HYDR-2376 PO; +INSU100V3 SQ; +LORT5TAB PO; +NOVOLOGP2 SQ
[2016-11-25] MEDS ORDERED: ASAC800T PO (07:16)
[2016-11-25] MEDS ORDERED: HYDR1CAP PO (07:16)
[2016-11-25] MEDS ORDERED: NOVO7030P2 SQ (07:16)
[2016-11-25] MEDS ORDERED: LIDOCAINE 1%/EPINEPHrine 1:100,000 SOLN 20 ML VIAL ONE (07:43)
[2016-11-25] MEDS ORDERED: SODIUM BICARBONATE 8.4% INJ 50 ML ONE (07:43)
[2016-11-25] MEDS ORDERED: SODIUM CHLOR 0.9% 1000 ML INJ 1,000 ML IV SCH (08:00)
[2016-11-25] MEDS ORDERED: fentaNYL CITRATE 250 MCG/5 ML AMP ONE (08:02)
[2016-11-25] MEDS ORDERED: MIDAZOLAM HCL 5 MG/5 ML VIAL ONE (08:02)
[2016-11-25] MEDS ORDERED: HYDROmorphone HCL 2 MG TAB PO PRN (09:30)
--- NOTE | 2016-11-25 11:03 | RADRPT ---
EXAM DATE/TIME: 11/25/2016 08:07 [facility] COMPARISON: CT ABDOMEN & PELVIS W CONTRAST, March 09, 2011, 1:01. CT ABDOMEN & PELVIS W CONTRAST, November 04, 2016, 12:56. INDICATIONS : Left Renal mass. SEDATION TIME: 30 minutes BIOPSY SITE: MEDICATION(S): 1.) 3 mg midazolam (Versed) IV 2.) 150 mcg fentanyl (Sublimaze) IV DEVICE(S): 1.) 18 gauge Thakur blunt needle 10cm 2.) 20 gauge Temno core biopsy needle 15cm MEDICAL HISTORY : Diabetes, smoker, Crohn's disease SURGICAL HISTORY : None. ENCOUNTER: Initial ACUITY: 1 day PAIN SCORE: 0/10 LOCATION: Left flank A total of five core specimen(s) were obtained and sent to the laboratory for pathologic evaluation. PROCEDURE: 1. CT guided renal biopsy. 2. Conscious sedation with continuous EKG and oximetry monitoring. Prior to the procedure informed consent was obtained. The patient's prior CT examinations were review ed. Using automated exposure control and adjustment of the mA and/or kV according to patient size, radiat ion dose was kept as low as reasonably achievable to obtain optimal diagnostic quality images. The site was prepped in a sterile fashion. Full sterile technique was used, including cap, mask, fausto rile gloves and gown and a large sterile sheet. Hand hygiene and 2% chlorhexidine and/or betadine/al cohol prep was utilized per protocol for cutaneous antisepsis. The skin and subcutaneous tissues wer e infiltrated with local anesthetic solution. With CT guidance the left lower pole renal mass was localized. Biopsy was performed using the prescri bed needle as above. Adequate hemostasis was obtained with compression at the puncture site. Follow-up CT scan reveals mild hemorrhage, as expected. No concerning complication has occurred. The patient tolerated the procedure well and there were no complications. The patient was returned to the Radiology Outpatient Unit in stable condition. CONCLUSION: Uncomplicated CT guided biopsy of the left renal mass. Kofi Hanks MD on November 25, 2016 at 11:00 Board Certified Radiologist. This report was verified electronically.
== END 2016-11-25 13:00 | disposition home or self-care (01) ==
LOC: HRAD 07:00 → HRIP 07:03 → HRAD 13:00
PROVIDERS: ATTEND Urology
DX: C64.9 Malignant neoplasm of unspecified kidney, except renal pelvis (principal); E11.9 Type 2 diabetes mellitus without complications; K50.90 Crohn's disease, unspecified, without complications; F17.200 Nicotine dependence, unspecified, uncomplicated
CPT/HCPCS: 50200; 77012; 88305; J2250; J3010

== ENCOUNTER → 2016-12-15 | Outpatient (CLI) | payer OTHER ==
[~2016-12-15] MED LIST changes: +ASAC800T PO; +HYDR1CAP PO; +NOVO7030P2 SQ; +PERC5TAB12 PO
[2016-12-15 11:35] LABS: AUTOMATED NEUTROPHIL # 6.7 TH/MM3 (1.8-7.7); BASOPHIL % 0.4 % (0.0-2.0); EOSINOPHIL # 0.2 TH/MM3 (0-0.4); HEMATOCRIT 44.1 % (35.0-46.0); HEMO FLAGS DIFF FINAL; LYMPHOCYTE # 3.1 TH/MM3 (1.0-4.8); MEAN CELL VOLUME 90.3 FL (80.0-100.0); MEAN CORPUSCULAR HEMOGLOBIN 30.1 PG (27.0-34.0); MEAN CORPUSCULAR HGB CONC 33.4 % (32.0-36.0); MONO % 5.8 % (0.0-8.0); NEUT % 62.8 % (16.0-70.0); PLATELET COUNT 258 TH/MM3 (150-450); RED BLOOD COUNT 4.88 MIL/MM3 (4.00-5.30); RED CELL DISTRIBUTION WIDTH 13.3 % (11.6-17.2); WHITE BLOOD COUNT 10.7 TH/MM3 (4.0-11.0)
[2016-12-15 11:55] LABS: APTT (PATIENT) 26.3 SEC (24.3-30.1); PROTHROMBIN TIME - PATIENT 10.7 SEC (9.8-11.6)
[2016-12-15 12:00] LABS: ALKALINE PHOSPHATASE 94 U/L (45-117); ALT (GPT) 33 U/L (10-53); ANION GAP 13 MEQ/L (5-15); AST (GOT) 14 U/L (15-37); BICARBONATE 26.3 MEQ/L (21.0-32.0); BLOOD UREA NITROGEN 13 MG/DL (7-18); CHLORIDE 102 MEQ/L (98-107); GLOMERULAR FILTRATION RATE 52 ML/MIN (>89); GLUCOSE,FASTING 281 MG/DL (74-99); POTASSIUM 3.6 MEQ/L (3.5-5.1); SODIUM (NA) 141 MEQ/L (136-145); TOTAL BILIRUBIN ADULT 0.5 MG/DL (0.2-1.0)
--- NOTE | 2016-12-16 09:58 | EKG ---
Date Performed: 12/15/2016 Time Performed: 11:30:33 PTAGE: 56 years EKG: Sinus rhythm POSSIBLE RIGHT ATRIAL ENLARGEMENT LEFT ATRIAL ENLARGEMENT LOW QRS VOLTAGE IN PRECORDIAL LEADS PATTER N CONSISTENT WITH PULMONARY DISEASE ABNORMAL ECG NO PREVIOUS TRACING DOCTOR: Fidencio Oleary Interpretating Date/Time 12/16/2016 09:57:40
== END ==
LOC: CPRE 10:46
PROVIDERS: ATTEND Urology
DX: Z01.810 Encounter for preprocedural cardiovascular examination (principal); Z01.812 Encounter for preprocedural laboratory examination; N28.89 Other specified disorders of kidney and ureter; R94.31 Abnormal electrocardiogram [ECG] [EKG]
CPT/HCPCS: 36415; 80053; 85025; 85610; 85730; 93005

== ENCOUNTER 2017-09-06 09:57 | Inpatient (IN) | payer SELFPAY ==
[2017-09-05 19:48] VITALS: PULSE 94
[~2017-09-06] VITALS: Ht 170.2 cm; Wt 84.5 kg
[2017-09-06] VITALS (11 sets, daily range): BP systolic 125–153; BP diastolic 62–94; PULSE 72–139; RESP 16–28; TEMP 97.7–101.6; O2SAT 89–98
[~2017-09-06 09:57] MED LIST changes: -HYDR-2376 PO; -INSU100V3 SQ; -LORT5TAB PO; -NOVOLOGP2 SQ; -PERC5TAB12 PO; +PRED20 PO
[2017-09-06] MEDS ORDERED: SODIUM CHLOR 0.9% 1000 ML INJ 1,000 ML IV SCH (10:30)
[2017-09-06] MEDS ORDERED: methylPREDNISolone SOD SUCC 125 MG/2 ML VIAL IV PUSH ONE (10:30)
[2017-09-06] MEDS ORDERED: SODIUM CHLORIDE 0.9% FLUSH 10 ML FLUSH IVF PRN (10:30)
[2017-09-06] MEDS: RESP: ALBUTEROL 2.5 MG/IPRATROPIUM 0.5 MG NEB (SCH) INH ×2 (10:48→10:49)
[2017-09-06 11:13] LABS: AUTOMATED NEUTROPHIL # 8.7 TH/MM3 (1.8-7.7); BASOPHIL # 0.1 TH/MM3 (0-0.2); BASOPHIL % 0.6 % (0.0-2.0); HEMATOCRIT 47.5 % (35.0-46.0); HEMOGLOBIN 15.9 GM/DL (11.6-15.3); LYMPH % 7.1 % (9.0-44.0); LYMPHOCYTE # 0.7 TH/MM3 (1.0-4.8); MEAN CELL VOLUME 91.6 FL (80.0-100.0); MEAN CORPUSCULAR HEMOGLOBIN 30.8 PG (27.0-34.0); MEAN CORPUSCULAR HGB CONC 33.6 % (32.0-36.0); MEAN PLATELET VOLUME 7.7 FL (7.0-11.0); MONO % 7.9 % (0.0-8.0); MONOCYTE # 0.8 TH/MM3 (0-0.9); NEUT % 84.4 % (16.0-70.0); PLATELET COUNT 189 TH/MM3 (150-450); RED BLOOD COUNT 5.18 MIL/MM3 (4.00-5.30); RED CELL DISTRIBUTION WIDTH 13.1 % (11.6-17.2); WHITE BLOOD COUNT 10.3 TH/MM3 (4.0-11.0)
--- NOTE | 2017-09-06 11:16 | RADRPT ---
EXAM DATE/TIME: 09/06/2017 10:49 [facility] COMPARISON: CHEST SINGLE AP, December 22, 2016, 17:48. INDICATIONS : Difficulty breathing. MEDICAL HISTORY : Crohn's disease. hypertension. diabetes SURGICAL HISTORY : Cholecystectomy. ENCOUNTER: Initial ACUITY: 2 days PAIN SCORE: 0/10 LOCATION: upper chest FINDINGS: No new focal pleural or parenchymal opacities. Cardiomediastinal contours are within normal limits. B varsha thorax is intact. CONCLUSION: 1. No acute cardiopulmonary disease. Sunday Romano MD on September 06, 2017 at 11:03 Board Certified Radiologist. This report was verified electronically.
[2017-09-06] MEDS ORDERED: ACETAMINOPHEN 500 MG CPLT PO ONE ×2 (11:30→12:15)
[2017-09-06 11:31] LABS: INTERNATIONAL NORMALIZED RATIO 1.1 RATIO; PROTHROMBIN TIME - PATIENT 10.7 SEC (9.8-11.6)
[2017-09-06 11:34] LABS: ALBUMIN 3.6 GM/DL (3.4-5.0); ALT (GPT) 17 U/L (10-53); AST (GOT) 14 U/L (15-37); BLOOD UREA NITROGEN 7 MG/DL (7-18); CALCIUM 8.7 MG/DL (8.5-10.1); CHLORIDE 98 MEQ/L (98-107); CREATININE 0.93 MG/DL (0.50-1.00); GLOMERULAR FILTRATION RATE 62 ML/MIN (>89); GLUCOSE,RANDOM 241 MG/DL (74-106); SODIUM (NA) 132 MEQ/L (136-145)
[2017-09-06 11:37] LABS: ALKALINE PHOSPHATASE 90 U/L (45-117); TOTAL BILIRUBIN ADULT 0.7 MG/DL (0.2-1.0); TOTAL PROTEIN 7.9 GM/DL (6.4-8.2); TROPONIN I LESS THAN 0.02 NG/ML (0.02-0.05)
[2017-09-06] MEDS ORDERED: SODIUM CHLOR 0.9% 1000 ML INJ 1,000 ML IV ONE (12:15)
[2017-09-06] MEDS ORDERED: PIPERACIL-TAZO 4.5 GM PREMIX 100 ML IV STA (12:15)
[2017-09-06 14:23] LABS: BACTERIA, URINE RARE /hpf; BILIRUBIN, URINE NEG (NEG); BLOOD, URINE LARGE (NEG); GLUCOSE,URINE 1000 mg/dL (NEG); KETONE, URINE 80 mg/dL (NEG); MUCUS URINE FEW /lpf (OCC); NITRITE,URINE NEG (NEG); PH, URINE 5.5 (5.0-8.5); SQUAMOUS EPITHELIAL CELL URINE 1 /hpf (0-5); URINE COLOR YELLOW (YELLW/STRAW); URINE LEUKOCYTE ESTERASE NEG (NEG)
[2017-09-06] MEDS ORDERED: IOHEXOL 350 MG/ML 10 ML VIAL (for RAD DIAG) IVCONTRAST ONE (14:43)
--- NOTE | 2017-09-06 14:45 | PD ---
HPI Chief Complaint: Respiratory Distress Time Seen by Provider: 10:21 Travel History International Travel<30 days: No Contact w/Intl Traveler<30days: No Traveled to known affect area: No History of Present Illness HPI This is a 57-year-old female who presents to the emergency department with 3 days of increasing shortness of breath, constant, severe, making it difficult for her to get out of bed associated with a productive cough with clear sputum and generalized malaise and fevers. She does have a history of Crohn's disease and takes prednisone 10 mg every day. She says her abdominal pain is about the same as it usually is. She has noticed she has been urinating a little more frequently. She denies any chest pain. PFSH Past Medical History Arthritis: No Asthma: No Autoimmune Disease: No Blood Disorders: No Anxiety: No Depression: No Heart Rhythm Problems: No Cancer: No Cardiovascular Problems: No High Cholesterol: No Chemotherapy: No Chest Pain: No Congestive Heart Failure: No COPD: No Cerebrovascular Accident: No Diabetes: Yes Patient Takes Glucophage: No Diminished Hearing: No Endocrine: Yes Gastrointestinal Disorders: Yes (chrons disease) GERD: Yes Glaucoma: No Genitourinary: Yes Headaches: No Hepatitis: No Hiatal Hernia: No Hypertension: Yes Immune Disorder: No Kidney Stones: Yes (DIAGNOSED ON December IN ED) Musculoskeletal: Yes Neurologic: Yes Psychiatric: No Reproductive: No Respiratory: No Immunizations Current: Yes Migraines: Yes Myocardial Infarction: No Radiation Therapy: No Renal Failure: No Seizures: No Sickle Cell Disease: No Sleep Apnea: No Thyroid Disease: No Ulcer: No Tetanus Vaccination: Unknown Influenza Vaccination: Yes ?: Not Menopausal: Yes : 1 : 1 Past Surgical History Abdominal Surgery: Yes (intestinal resection) AICD: No Appendectomy: No Arteriovenous Shunt: No Body Medical Devices: HARDWARE IN NECK Cardiac Surgery: No Cholecystectomy: Yes Ear Surgery: No Endocrine Surgery: No Eye Surgery: No Genitourinary Surgery: No Gynecologic Surgery: No Insulin Pump: No Joint Replacement: No Neurologic Surgery: Yes (NECK SURGERY,) Oral Surgery: No Pacemaker: No Thoracic Surgery: No Other Surgery: Yes (TENDON RELEASE LEFT THUMB) Social History Alcohol Use: Yes (weekends (5-6 tonight)) Tobacco Use: Yes (SMOKES WHEN DRINKING) Substance Use: No Allergies-Medications (Allergen,Severity, Reaction): Coded Allergies: infliximab (Unverified Allergy, Severe, Anaphylaxis, 09/06/17) infliximab-dyyb (Unverified Allergy, Severe, Anaphylaxis, 09/06/17) azathioprine (Unverified Allergy, Intermediate, HIVES, 09/06/17) Reported Meds & Prescriptions Reported Meds & Active Scripts Active Reported Prednisone 20 Mg Tab 10 Mg PO DAILY Take 40 mg (2 tablets) daily for 5 days Zohydro ER (Hydrocodone ER) 10 Mg Caper 10 Mg PO QID Asacol HD (Mesalamine) 800 Mg Tab 2,400 Mg PO TID Swallow whole. Take on an empty stomach. Novolin 70-30 Inj (Insulin Human Isoph/Insulin Regular) 1,000 Unit/10 Ml Vial 14 Units SQ BID Zofran (Ondansetron HCl) 4 Mg Tab 4 Mg PO Q6HR PRN Review of Systems Except as stated in HPI: all other systems reviewed are Neg Physical Exam Narrative GENERAL: Ill-appearing SKIN: Dry with skin tenting HEAD: Atraumatic. Normocephalic. EYES: Pupils equal and round. No injection or drainage. ENT: Dry mucous membranes NECK: Trachea midline. CARDIOVASCULAR: Tachycardia no murmur appreciated. RESPIRATORY: Diffuse wheezing in the bilateral lungs with some increased work of breathing GASTROINTESTINAL: Abdomen soft, non-tender, nondistended. MUSCULOSKELETAL: No obvious deformities. NEUROLOGICAL: Awake and alert. No obvious cranial nerve deficits. Moving all extremities. PSYCHIATRIC: Appropriate mood and affect; insight and judgment normal. Data Data Last Documented VS Vital Signs Date Time Temp Pulse Resp B/P (MAP) Pulse Ox O2 Delivery O2 Flow Rate FiO2 09/06/17 15:07 99.0 101 24 125/62 (83) 95 Nasal Cannula 2.00 Orders Orders Complete Blood Count With Diff (09/06/17 10:27) Comprehensive Metabolic Panel (09/06/17 10:27) B-Type Natriuretic Peptide (09/06/17 10:27) Act Partial Throm Time (Ptt) (09/06/17 10:27) Prothrombin Time / Inr (Pt) (09/06/17 10:27) Troponin I (09/06/17 10:27) Urinalysis - C+S If Indicated (09/06/17 10:27) Influenzae A/B Antigen (09/06/17 10:27) Blood Culture (09/06/17 10:27) Iv Access Insert/Monitor (09/06/17 10:27) Ecg Monitoring (09/06/17 10:27) Oximetry (09/06/17 10:27) Oxygen Administration (09/06/17 10:27) Chest, Single Ap (09/06/17 10:27) Sodium Chloride 0.9% Flush (Ns Flush) (09/06/17 10:30) Methylprednisolone So Succ Inj (Solumedr (09/06/17 10:30) Albuterol-Ipratropium Neb (Duoneb Neb) (09/06/17 10:30) Sodium Chlor 0.9% 1000 Ml Inj (Ns 1000 M (09/06/17 10:30) Lactic Acid Sepsis Protocol (09/06/17 10:40) Acetaminophen (Tylenol) (09/06/17 11:30) Electrocardiogram (09/06/17 10:14) Acetaminophen (Tylenol) (09/06/17 12:15) Sodium Chlor 0.9% 1000 Ml Inj (Ns 1000 M (09/06/17 12:15) Ct Pulmonary Angiogram (09/06/17 ) Piperacil-Tazo 4.5 Gm Premix (Zosyn 4.5 (09/06/17 12:15) Iohexol 350 Inj (Omnipaque 350 Inj) (09/06/17 14:43) Ketorolac Inj (Toradol Inj) (09/06/17 15:00) Admit Order (Ed Use Only) (09/06/17 16:06) Labs Laboratory Tests Test 09/06/17 10:50 09/06/17 10:53 09/06/17 14:05 White Blood Count 10.3 TH/MM3 Red Blood Count 5.18 MIL/MM3 Hemoglobin 15.9 GM/DL Hematocrit 47.5 % Mean Corpuscular Volume 91.6 FL Mean Corpuscular Hemoglobin 30.8 PG Mean Corpuscular Hemoglobin Concent 33.6 % Red Cell Distribution Width 13.1 % Platelet Count 189 TH/MM3 Mean Platelet Volume 7.7 FL Neutrophils (%) (Auto) 84.4 % Lymphocytes (%) (Auto) 7.1 % Monocytes (%) (Auto) 7.9 % Eosinophils (%) (Auto) 0.0 % Basophils (%) (Auto) 0.6 % Neutrophils # (Auto) 8.7 TH/MM3 Lymphocytes # (Auto) 0.7 TH/MM3 Monocytes # (Auto) 0.8 TH/MM3 Eosinophils # (Auto) 0.0 TH/MM3 Basophils # (Auto) 0.1 TH/MM3 CBC Comment DIFF FINAL Differential Comment Prothrombin Time 10.7 SEC Prothromb Time International Ratio 1.1 RATIO Activated Partial Thromboplast Time 30.6 SEC Blood Urea Nitrogen 7 MG/DL Creatinine 0.93 MG/DL Random Glucose 241 MG/DL Total Protein 7.9 GM/DL Albumin 3.6 GM/DL Calcium Level 8.7 MG/DL Alkaline Phosphatase 90 U/L Aspartate Amino Transf (AST/SGOT) 14 U/L Alanine Aminotransferase (ALT/SGPT) 17 U/L Total Bilirubin 0.7 MG/DL Sodium Level 132 MEQ/L Potassium Level 4.0 MEQ/L Chloride Level 98 MEQ/L Carbon Dioxide Level 24.0 MEQ/L Anion Gap 10 MEQ/L Estimat Glomerular Filtration Rate 62 ML/MIN Troponin I LESS THAN 0.02 NG/ML B-Type Natriuretic Peptide 66 PG/ML Lactic Acid Level 1.8 mmol/L Urine Color YELLOW Urine Turbidity CLEAR Urine pH 5.5 Urine Specific [place] 1.021 Urine Protein 100 mg/dL Urine Glucose (UA) 1000 mg/dL Urine Ketones 80 mg/dL Urine Occult Blood LARGE Urine Nitrite NEG Urine Bilirubin NEG Urine Urobilinogen LESS THAN 2.0 MG/DL Urine Leukocyte Esterase NEG Urine RBC 41 /hpf Urine WBC 1 /hpf Urine Squamous Epithelial Cells 1 /hpf Urine Bacteria RARE /hpf Urine Mucus FEW /lpf Microscopic Urinalysis Comment CULT NOT INDICATED MDM Medical Decision Making Medical Screen Exam Complete: Yes Emergency Medical Condition: Yes Interpretation(s) Fever, tachycardia, hypoxia Mild anemia Mild hyponatremia Troponin is normal BNP is normal Lactic acid is normal Last 24 hours Impressions Chest X-Ray 09/06/17 1027 Signed Impressions: Service Date/Time: Wednesday, September 06, 2017 10:49 - CONCLUSION: 1. No acute cardiopulmonary disease. Sunday Romano MD CT Angiography 09/06/17 0000 Signed Impressions: Service Date/Time: Wednesday, September 06, 2017 14:35 - CONCLUSION: 1. Limited examination without evidence for pulmonary artery embolism to the proximal segmental level. Some distal segmental and subsegmental branches are inadequately opacified for definitive evaluation. 2. Scattered groupings of nodular groundglass opacities in the right upper and lower lobes. Overall pattern is most consistent with an inflammatory/infectious etiology. 3. Subcentimeter bilateral hilar nodes do not meet CT size criteria and are nonspecific but usually reactive. Sunday Romano MD Differential Diagnosis Influenza, pneumonia, pulmonary embolism, COPD exacerbation, interstitial lung disease Narrative Course This is a 57-year-old female who presents to the emergency department with shortness of breath it has been going on for 3 days associated with fever. She is immunosuppressed and on chronic prednisone due to Crohn's disease. She was placed on a monitor and an IV was established. She was found to be tachycardic and febrile as well as hypoxic on room air. Labs are reassuring. Chest x-ray is unremarkable. CT demonstrates groundglass opacities consistent with an inflammatory infectious etiology of the patient's symptoms. Influenza was negative although given her symptoms I am inclined to think this is likely influenza. Upfront she was cultured and given a dose of Zosyn for suspicion of possible pneumonia. Patient will be admitted for respiratory management. Her wheezing resolved after serial bronchodilators and steroids. Physician Communication Physician Communication Discussed with Dr. Lord Diagnosis Primary Impression: Hypoxia Additional Impression: Sepsis Qualified Codes: A41.9 - Sepsis, unspecified organism Admitting Information Admitting Physician Requests: Admit Treasure Santoyo MD Sep 06, 2017 14:45
[2017-09-06] MEDS ORDERED: KETOROLAC TROMETHAMINE 30 MG/ML (IVP) VIAL IV PUSH ONE (15:00)
--- NOTE | 2017-09-06 15:04 | RADRPT ---
EXAM DATE/TIME: 09/06/2017 14:35 [facility] COMPARISON: No previous studies available for comparison. INDICATIONS : Shortness of breath, evaluate for embolism IV CONTRAST: 70 cc Omnipaque 350 (iohexol) IV RADIATION DOSE: 22.74 CTDIvol (mGy) MEDICAL HISTORY : Hypertension. SURGICAL HISTORY : Colon resection. Kidney stones, diabetes ENCOUNTER: Initial ACUITY: 1 day PAIN SCALE: 4/10 LOCATION: chest TECHNIQUE: Volumetric scanning of the chest was performed using a pulmonary embolism protocol MIP images were re constructed. Using automated exposure control and adjustment of the mA and/or kV according to patien t size, radiation dose was kept as low as reasonably achievable to obtain optimal diagnostic quality images. DICOM format image data is available electronically for review and comparison. Follow-up recommendations for detected pulmonary nodules are based at a minimum on nodule size and pa tient risk factors according to Fleischner Society Guidelines. FINDINGS: PULMONARY ARTERIES: The pulmonary arteries are only visualized to the proximal segmental level without evidence for intra luminal filling defect. Some distal segmental and subsegmental branches are inadequately opacified fo r definitive evaluation. LUNGS: Scattered groupings of slightly nodular groundglass opacities in the right upper lobe as well as the right lower lobe. PLEURAE: There is no pleural thickening or pleural effusion. MEDIASTINUM: Small subcentimeter bilateral hilar nodes. No significant mediastinal adenopathy. Coronary artery leela cifications. Heart is otherwise unremarkable by CT. MUSCULOSKELETAL: Lower cervical anterior cervical fusion. No focal abnormal lytic or blastic bony lesions. Degenerativ e changes in the lower thoracic spine. MISCELLANEOUS: The visualized upper abdominal organs demonstrate no acute abnormality. CONCLUSION: 1. Limited examination without evidence for pulmonary artery embolism to the proximal segmental level . Some distal segmental and subsegmental branches are inadequately opacified for definitive evaluatio n. 2. Scattered groupings of nodular groundglass opacities in the right upper and lower lobes. Overall p attern is most consistent with an inflammatory/infectious etiology. 3. Subcentimeter bilateral hilar nodes do not meet CT size criteria and are nonspecific but usually r eactive. Sunday Romano MD on September 06, 2017 at 14:54 Board Certified Radiologist. This report was verified electronically.
[2017-09-06] MEDS ORDERED: SODIUM CHLORIDE 0.9% FLUSH 10 ML FLUSH IV FLUSH PRN (16:30)
[2017-09-06] MEDS ORDERED: NALOXONE HCL 0.4 MG/ML AMP IV PUSH PRN (16:30)
[2017-09-06] MEDS ORDERED: RESP: IPRATROPIUM 0.5 MG/2.5 ML NEB NEB PRN (16:45)
--- NOTE | 2017-09-06 17:10 | HHI.HP ---
[facility] Kali Bowers M.D. Admission Diagnosis hypoxia Diagnoses: Travel History International Travel<30 Days: No Contact w/Intl Traveler <30 Da: No Traveled to Known Affected Are: No History of Present Illness History from patient, ER physician communication, and review of medical records. 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- Dr Ramírez; partial colon resection ; was on prednisone on and off- now at 10mg po daily- on tapering dose, only have about 4-5 days left Past Surgical History left nephrectomy partial colon resection neck fusion left hand / wrist sx Allergies: Coded Allergies: infliximab (Unverified Allergy, Severe, Anaphylaxis, 09/06/17) infliximab-dyyb (Unverified Allergy, Severe, Anaphylaxis, 09/06/17) azathioprine (Unverified Allergy, Intermediate, HIVES, 09/06/17) Family History not sure, she was adopted Social History smokes about a few on weekends drinks only socially on weekends no drugs still driving, lives with a friend ambulate without assistance Physical Exam Vital Signs Vital Signs Date Time Temp Pulse Resp B/P (MAP) Pulse Ox O2 Delivery O2 Flow Rate FiO2 09/06/17 16:50 09/06/17 15:07 99.0 101 24 125/62 (83) 95 Nasal Cannula 2.00 09/06/17 12:58 115 28 153/74 (100) 90 Nasal Cannula 2.00 09/06/17 11:32 101.6 129 28 144/67 (92) 95 Nasal Cannula 2.00 09/06/17 11:31 96 Nasal Cannula 2.00 09/06/17 10:50 95 Nasal Cannula 2.00 09/06/17 10:10 100.7 127 26 137/81 (99) 89 09/06/17 09:58 101.6 139 26 140/94 (109) 89 Physical Exam GENERAL: This is a well-nourished, well-developed patient, in no apparent distress. SKIN: No rashes, ecchymoses or lesions. Cool and dry. HEAD: Atraumatic. Normocephalic. No temporal or scalp tenderness. EYES: No scleral icterus. No injection or drainage. ENT: Nose without bleeding, purulent drainage or septal hematoma. . Airway patent. NECK: Trachea midline. No JVD . Supple, nontender, no meningeal signs. CARDIOVASCULAR: Regular rate and rhythm without murmurs, gallops, or rubs. RESPIRATORY: bilateral expiratory wheezing GASTROINTESTINAL: Abdomen soft, non-tender, nondistended. No guarding. MUSCULOSKELETAL: Extremities without clubbing, cyanosis, or edema. . No calf tenderness. NEUROLOGICAL: Awake and alert. Motor and sensory grossly within normal limits. Normal speech. Laboratory Laboratory Tests Test 09/06/17 10:50 09/06/17 10:53 09/06/17 14:05 White Blood Count 10.3 Red Blood Count 5.18 Hemoglobin 15.9 Hematocrit 47.5 Mean Corpuscular Volume 91.6 Mean Corpuscular Hemoglobin 30.8 Mean Corpuscular Hemoglobin Concent 33.6 Red Cell Distribution Width 13.1 Platelet Count 189 Mean Platelet Volume 7.7 Neutrophils (%) (Auto) 84.4 Lymphocytes (%) (Auto) 7.1 Monocytes (%) (Auto) 7.9 Eosinophils (%) (Auto) 0.0 Basophils (%) (Auto) 0.6 Neutrophils # (Auto) 8.7 Lymphocytes # (Auto) 0.7 Monocytes # (Auto) 0.8 Eosinophils # (Auto) 0.0 Basophils # (Auto) 0.1 CBC Comment DIFF FINAL Differential Comment Prothrombin Time 10.7 Prothromb Time International Ratio 1.1 Activated Partial Thromboplast Time 30.6 Blood Urea Nitrogen 7 Creatinine 0.93 Random Glucose 241 Total Protein 7.9 Albumin 3.6 Calcium Level 8.7 Alkaline Phosphatase 90 Aspartate Amino Transf (AST/SGOT) 14 Alanine Aminotransferase (ALT/SGPT) 17 Total Bilirubin 0.7 Sodium Level 132 Potassium Level 4.0 Chloride Level 98 Carbon Dioxide Level 24.0 Anion Gap 10 Estimat Glomerular Filtration Rate 62 Troponin I LESS THAN 0.02 B-Type Natriuretic Peptide 66 Lactic Acid Level 1.8 Urine Color YELLOW Urine Turbidity CLEAR Urine pH 5.5 Urine Specific [place] 1.021 Urine Protein 100 Urine Glucose (UA) 1000 Urine Ketones 80 Urine Occult Blood LARGE Urine Nitrite NEG Urine Bilirubin NEG Urine Urobilinogen LESS THAN 2.0 Urine Leukocyte Esterase NEG Urine RBC 41 Urine WBC 1 Urine Squamous Epithelial Cells 1 Urine Bacteria RARE Urine Mucus FEW Microscopic Urinalysis Comment CULT NOT INDICATED Date/Time Source Procedure Growth Status 09/06/17 10:50 Blood Peripheral Aerobic Blood Culture Pending Received 09/06/17 10:50 Blood Peripheral Anaerobic Blood Culture Pending Received 09/06/17 11:35 Nasal Washing Influenza Types A,B Antigen (YARI) - Final NEGATIVE FOR FLU A AND B ANTIGEN.... Complete Result Diagram: 09/06/17 1050 09/06/17 1050 Imaging Last 48 hours Impressions Chest X-Ray 09/06/17 1027 Signed Impressions: Service Date/Time: Wednesday, September 06, 2017 10:49 - CONCLUSION: 1. No acute cardiopulmonary disease. Sunday Romano MD CT Angiography 09/06/17 0000 Signed Impressions: Service Date/Time: Wednesday, September 06, 2017 14:35 - CONCLUSION: 1. Limited examination without evidence for pulmonary artery embolism to the proximal segmental level. Some distal segmental and subsegmental branches are inadequately opacified for definitive evaluation. 2. Scattered groupings of nodular groundglass opacities in the right upper and lower lobes. Overall pattern is most consistent with an inflammatory/infectious etiology. 3. Subcentimeter bilateral hilar nodes do not meet CT size criteria and are nonspecific but usually reactive. Sunday Romano MD Caprini VTE Risk Assessment Caprini VTE Risk Assessment: Mod/High Risk (score >= 2) Caprini Risk Assessment Model Point Value = 1 Point Value = 2 Point Value = 3 Point Value = 5 Age 41-60 Minor surgery BMI > 25 kg/m2 Swollen legs Varicose veins or History of unexplained or recurrent spontaneous Oral contraceptives or hormone replacement Sepsis (< 1 month) Serious lung disease, including pneumonia (< 1 month) Abnormal pulmonary function Acute myocardial infarction Congestive heart failure (< 1 month) History of inflammatory bowel disease Medical patient at bed rest Age 61-74 Arthroscopic surgery Major open surgery (> 45 min) Laparoscopic surgery (> 45 min) Malignancy Confined to bed (> 72 hours) Immobilizing plaster cast Central venous access Age >= 75 History of VTE Family history of VTE Factor V Leiden Prothrombin [id number] Lupus anticoagulant Anticardiolipin antibodies Elevated serum homocysteine Heparin-induced thrombocytopenia Other congenital or acquired thrombophilia Stroke (< 1 month) Elective arthroplasty Hip, pelvis, or leg fracture Acute spinal cord injury (< 1 month) Prophylaxis Regimen Total Risk Factor Score Risk Level Prophylaxis Regimen 0-1 Low Early ambulation 2 Moderate Order ONE of the following: *Sequential Compression Device (SCD) *Heparin 5000 units SQ BID 3-4 Higher Order ONE of the following medications: *Heparin 5000 units SQ TID *Enoxaparin/Lovenox 40 mg SQ daily (WT < 150 kg, CrCl > 30 mL/min) *Enoxaparin/Lovenox 30 mg SQ daily (WT < 150 kg, CrCl > 10-29 mL/min) *Enoxaparin/Lovenox 30 mg SQ BID (WT < 150 kg, CrCl > 30 mL/min) AND/OR *Sequential Compression Device (SCD) 5 or more Highest Order ONE of the following medications: *Heparin 5000 units SQ TID (Preferred with Epidurals) *Enoxaparin/Lovenox 40 mg SQ daily (WT < 150 kg, CrCl > 30 mL/min) *Enoxaparin/Lovenox 30 mg SQ daily (WT < 150 kg, CrCl > 10-29 mL/min) *Enoxaparin/Lovenox 30 mg SQ BID (WT < 150 kg, CrCl > 30 mL/min) AND *Sequential Compression Device (SCD) Assessment and Plan Assessment and Plan Impression: Hypoxia Pneumonia Viral syndrome COPD exacerbation Hematuria on UA 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 Nebulizers when necessary. Patient has negative flu test. However her symptoms are quite consistent with viral syndrome as well. For now and given that she has underlying COPD, severe hypoxia, abnormal CT chest would treat for pneumonia as well. Levofloxacin 750 mg IV every 24 hours. Resume home meds. Monitor fingersticks. Would consult patient's urologist as patient is having hematuria on UA. She does have history of renal cell carcinoma and urology notes reveals that they wanted her to follow up in July with repeat CT. Patient however was lost to follow-up then. DVT prophylaxis with SCD. GI prophylaxis on ranitidine Discussed Condition With patient, ER MD, nursing staff Physician Certification 2 Midnight Certification Type: Admission for Inpatient Services Order for Inpatient Services The services are ordered in accordance with Medicare regulations or non- Medicare payer requirements, as applicable. In the case of services not specified as inpatient-only, they are appropriately provided as inpatient services in accordance with the 2-midnight benchmark. Estimated LOS (days): 2 days is the estimated time the patient will need to remain in the hospital, assuming treatment plan goals are met and no additional complications. Post-Hospital Plan: Home Alexander Lord MD Sep 06, 2017 17:10
[2017-09-06] MEDS ORDERED: NON-FORMULARY DRUG (Ondansetron (Zofran) 4 MG) PO PRN (17:15)
[2017-09-06] MEDS ORDERED: DEXTROSE 50% IN WATER 50 ML VIAL(D50) IV PUSH PRN (17:15)
[2017-09-06] MEDS ORDERED: GLUCAGON 1 MG/ML VIAL OTHER PRN (17:15)
[2017-09-06] MEDS: MESALAMINE HD 800 MG DELAYED RELEASE TAB PO SCH (18:55)
[2017-09-06] MEDS: ACETAMINOPHEN/HYDROcodone 325 MG/5 MG TAB PO PRN (18:58)
--- NOTE | 2017-09-06 19:51 | EKG ---
Date Performed: 09/06/2017 Time Performed: 10:14:44 PTAGE: 57 years EKG: SINUS TACHYCARDIA PATTERN CONSISTENT WITH PULMONARY DISEASE LEFT ANTERIOR FASCICULAR BLOCK Compared to previous tracing, the patient is now tachycardic ABNORMAL ECG NO PREVIOUS TRACING DOCTOR: Elly Avila Interpretating Date/Time 09/06/2017 19:49:25
[2017-09-06] MEDS: INSULIN HUMAN NPH/R 70/30 1,000 UNITS/10 ML VIAL SQ SCH (21:08)
[2017-09-06] MEDS: SODIUM CHLORIDE 0.9% FLUSH 10 ML FLUSH IV FLUSH SCH (21:08)
[2017-09-06] MEDS: INSULIN ASPART SUPPLEMENTAL SCALE SQ SCH (21:09)
[2017-09-06] MEDS: RESP: IPRATROPIUM 0.5 MG/2.5 ML NEB NEB SCH (21:25)
[2017-09-07] VITALS (10 sets, daily range): BP systolic 137–169; BP diastolic 70–78; PULSE 73–101; RESP 20–21; TEMP 97.6–98.4; O2SAT 94–98
[2017-09-07] MEDS: LEVOFLOXACIN 750 MG PREMIX INJ 150 ML IV SCH (00:12)
[2017-09-07] MEDS: TEMAZEPAM 7.5 MG CAP PO PRN ×2 (01:34→19:51)
[2017-09-07] MEDS: ACETAMINOPHEN/HYDROcodone 325 MG/5 MG TAB PO PRN ×4 (01:34→19:51)
[2017-09-07] MEDS: RESP: IPRATROPIUM 0.5 MG/2.5 ML NEB NEB SCH ×4 (05:04→21:15)
[2017-09-07] MEDS: SODIUM CHLORIDE 0.9% FLUSH 10 ML FLUSH IV FLUSH SCH ×2 (07:32→19:51)
[2017-09-07] MEDS: FAMOTIDINE 20 MG TAB PO SCH ×2 (07:32→19:51)
[2017-09-07] MEDS: MESALAMINE HD 800 MG DELAYED RELEASE TAB PO SCH ×3 (07:32→17:30)
[2017-09-07] MEDS: predniSONE 10 MG TAB PO SCH (07:32)
[2017-09-07] MEDS: INSULIN ASPART SUPPLEMENTAL SCALE SQ SCH ×4 (08:00→19:52)
[2017-09-07 08:43] LABS: AUTOMATED NEUTROPHIL # 11.8 TH/MM3 (1.8-7.7); BASOPHIL % 0.2 % (0.0-2.0); HEMATOCRIT 44.4 % (35.0-46.0); LYMPH % 9.2 % (9.0-44.0); LYMPHOCYTE # 1.3 TH/MM3 (1.0-4.8); MEAN CELL VOLUME 91.9 FL (80.0-100.0); MEAN CORPUSCULAR HGB CONC 33.7 % (32.0-36.0); MEAN PLATELET VOLUME 7.2 FL (7.0-11.0); MONO % 8.2 % (0.0-8.0); MONOCYTE # 1.2 TH/MM3 (0-0.9); NEUT % 82.4 % (16.0-70.0); PLATELET COUNT 175 TH/MM3 (150-450); RED BLOOD COUNT 4.83 MIL/MM3 (4.00-5.30); RED CELL DISTRIBUTION WIDTH 13.3 % (11.6-17.2); WHITE BLOOD COUNT 14.4 TH/MM3 (4.0-11.0)
[2017-09-07 08:59] LABS: BICARBONATE 25.6 MEQ/L (21.0-32.0); CREATININE 0.69 MG/DL (0.50-1.00)
[2017-09-07] MEDS: INSULIN HUMAN NPH/R 70/30 1,000 UNITS/10 ML VIAL SQ SCH ×2 (10:11→19:52)
[2017-09-07] MEDS: ACETAMINOPHEN 325 MG TAB PO PRN (12:53)
--- NOTE | 2017-09-07 13:11 | PD.CONS ---
HPI Service Urology Consult Requested By Reason for Consult Renal MAss Primary Care Physician Kali Bowers M.D. Diagnosis: History of Present Illness 57-year-old female with history of left renal mass status post left radical robotic nephrectomy summer followed by Dr. Lopez now admitted for COPD exacerbation. Patient denies any gross hematuria. Denies any fevers chills nausea vomiting. she was lost to follow-up due to insurance issues. Patient would like to continue to follow-up with Dr. Lopez. Voiding well. Microscopic blood noted on recent urine study. 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- Dr Ramírez; partial colon resection ; was on prednisone on and off- now at 10mg po daily- on tapering dose, only have about 4-5 days left Past Surgical History left nephrectomy partial colon resection neck fusion left hand / wrist sx Reported Medications Reported Meds & Active Scripts Active Levaquin (Levofloxacin) 750 Mg Tablet 750 Mg PO DAILY [Imlh-Dflgu-Msgb 325-50-40 Mg] 1 TAB Tab 1 Tab PO Q6H PRN [Budeson-Formot 160-4.5 Mcg Inh] 60 PUFF Aero 1 Puff INH Q12HR [guaiFENesin ER] 600 MG Tabcr 600 Mg PO BID Famotidine 20 Mg Tab 20 Mg PO Q12HR Reported Prednisone 20 Mg Tab 10 Mg PO DAILY Take 40 mg (2 tablets) daily for 5 days Zohydro ER (Hydrocodone ER) 10 Mg Caper 10 Mg PO QID Asacol HD (Mesalamine) 800 Mg Tab 2,400 Mg PO TID Swallow whole. Take on an empty stomach. Novolin 70-30 Inj (Insulin Human Isoph/Insulin Regular) 1,000 Unit/10 Ml Vial 14 Units SQ BID Zofran (Ondansetron HCl) 4 Mg Tab 4 Mg PO Q6HR PRN Allergies: Coded Allergies: infliximab (Unverified Allergy, Severe, Anaphylaxis, 09/06/17) infliximab-dyyb (Unverified Allergy, Severe, Anaphylaxis, 09/06/17) azathioprine (Unverified Allergy, Intermediate, HIVES, 09/06/17) Family History Family history reviewed and noncontributory to present illness as she was adopted Social History smokes about a few on weekends drinks only socially on weekends no drugs still driving, lives with a friend ambulate without assistance Physical Exam Vital Signs Date Time Temp Pulse Resp B/P (MAP) Pulse Ox O2 Delivery O2 Flow Rate FiO2 09/07/17 08:32 94 Nasal Cannula 3.00 09/07/17 08:00 98.3 98 20 169/72 (104) 97 09/07/17 07:00 94 Nasal Cannula 3.00 09/07/17 05:06 98 Nasal Cannula 2.00 09/07/17 04:00 Nasal Cannula 2.00 09/07/17 04:00 98.1 90 20 137/70 (92) 97 09/07/17 03:47 98 09/07/17 00:00 Nasal Cannula 2.00 09/06/17 23:48 87 09/06/17 21:26 98 Nasal Cannula 2.00 09/06/17 20:00 98.2 72 20 153/82 (105) 97 09/06/17 17:09 Nasal Cannula 3.00 09/06/17 17:00 97.7 90 20 153/72 (99) 94 09/06/17 16:50 09/06/17 15:07 99.0 101 24 125/62 (83) 95 Nasal Cannula 2.00 Physical Exam GENERAL: This is a well-nourished, well-developed patient, in no apparent distress. SKIN: No rashes, ecchymoses or lesions. Cool and dry. HEAD: Atraumatic. Normocephalic. EYES: Extraocular motions intact. No scleral icterus. No injection or drainage. ENT: Nose without bleeding, purulent drainage. Airway patent. NECK: Trachea midline. No JVD or lymphadenopathy. CARDIOVASCULAR: Normal pulses. RESPIRATORY: Nonlabored GASTROINTESTINAL: Abdomen soft, non-tender, nondistended. MUSCULOSKELETAL: Extremities without clubbing, cyanosis, or edema. NEUROLOGICAL: Awake and alert. Motor and sensory grossly within normal limits. Normal speech. Lab results reviewed: Yes Laboratory Tests Test 09/06/17 14:05 09/06/17 21:05 09/07/17 07:15 09/07/17 07:45 Urine Color YELLOW Urine Turbidity CLEAR Urine pH 5.5 Urine Specific [place] 1.021 Urine Protein 100 Urine Glucose (UA) 1000 Urine Ketones 80 Urine Occult Blood LARGE Urine Nitrite NEG Urine Bilirubin NEG Urine Urobilinogen LESS THAN 2.0 Urine Leukocyte Esterase NEG Urine RBC 41 Urine WBC 1 Urine Squamous Epithelial Cells 1 Urine Bacteria RARE Urine Mucus FEW Microscopic Urinalysis Comment CULT NOT INDICATED Random Glucose 469 150 White Blood Count 14.4 Red Blood Count 4.83 Hemoglobin 15.0 Hematocrit 44.4 Mean Corpuscular Volume 91.9 Mean Corpuscular Hemoglobin 31.0 Mean Corpuscular Hemoglobin Concent 33.7 Red Cell Distribution Width 13.3 Platelet Count 175 Mean Platelet Volume 7.2 Neutrophils (%) (Auto) 82.4 Lymphocytes (%) (Auto) 9.2 Monocytes (%) (Auto) 8.2 Eosinophils (%) (Auto) 0.0 Basophils (%) (Auto) 0.2 Neutrophils # (Auto) 11.8 Lymphocytes # (Auto) 1.3 Monocytes # (Auto) 1.2 Eosinophils # (Auto) 0.0 Basophils # (Auto) 0.0 CBC Comment DIFF FINAL Differential Comment Blood Urea Nitrogen 12 Creatinine 0.69 Calcium Level 9.0 Sodium Level 138 Potassium Level 3.8 Chloride Level 105 Carbon Dioxide Level 25.6 Anion Gap 7 Estimat Glomerular Filtration Rate 88 Date/Time Source Procedure Growth Status 09/06/17 10:50 Blood Peripheral Aerobic Blood Culture - Preliminary NO GROWTH IN 1 DAY Resulted 09/06/17 10:50 Blood Peripheral Anaerobic Blood Culture - Preliminary NO GROWTH IN 1 DAY Resulted 09/06/17 11:35 Nasal Washing Influenza Types A,B Antigen (YARI) - Final NEGATIVE FOR FLU A AND B ANTIGEN.... Complete Result Diagram: 09/07/17 0715 09/07/17 0745 Personally reviewed images: Yes Imaging Last Impressions Chest X-Ray 09/06/17 1027 Signed Impressions: Service Date/Time: Wednesday, September 06, 2017 10:49 - CONCLUSION: 1. No acute cardiopulmonary disease. Sunday Romano MD CT Angiography 09/06/17 0000 Signed Impressions: Service Date/Time: Wednesday, September 06, 2017 14:35 - CONCLUSION: 1. Limited examination without evidence for pulmonary artery embolism to the proximal segmental level. Some distal segmental and subsegmental branches are inadequately opacified for definitive evaluation. 2. Scattered groupings of nodular groundglass opacities in the right upper and lower lobes. Overall pattern is most consistent with an inflammatory/infectious etiology. 3. Subcentimeter bilateral hilar nodes do not meet CT size criteria and are nonspecific but usually reactive. Sunday Romano MD Assessment and Plan Problem List: (1) Renal cell carcinoma of left kidney ICD Code: C64.2 - Malignant neoplasm of left kidney, except renal pelvis Status: Acute (2) Left renal mass ICD Code: N28.89 - Other specified disorders of kidney and ureter Status: Acute Assessment and Plan No immediate urological intervention indicated at this time. Patient may follow-up with Dr. Lopez as an outpatient Rodrick Longoria MD Sep 07, 2017 13:11
[2017-09-07] MEDS: ONDANSETRON ODT 4 MG TAB PO PRN (20:40)
--- NOTE | 2017-09-07 21:42 | HHI.PR ---
Subjective Remarks patient reported "it's hard to breathe, get warts with exertion "patient is not on O2 at home he is now on 3 L Patient came with hypoxia history of COPD WBC increased to 14.4 he has positive crackles Objective Vitals Vital Signs Date Time Temp Pulse Resp B/P (MAP) Pulse Ox O2 Delivery O2 Flow Rate FiO2 09/07/17 16:00 97.6 73 20 138/76 (96) 98 09/07/17 15:53 94 Nasal Cannula 3.00 09/07/17 12:00 98.4 101 20 154/70 (98) 96 09/07/17 08:32 94 Nasal Cannula 3.00 09/07/17 08:00 98.3 98 20 169/72 (104) 97 09/07/17 07:00 94 Nasal Cannula 3.00 09/07/17 05:06 98 Nasal Cannula 2.00 09/07/17 04:00 Nasal Cannula 2.00 09/07/17 04:00 98.1 90 20 137/70 (92) 97 09/07/17 03:47 98 09/07/17 00:00 Nasal Cannula 2.00 09/06/17 23:48 87 I/O 09/06/17 09/06/17 09/06/17 09/07/17 09/07/17 09/07/17 07:00 15:00 23:00 07:00 15:00 23:00 Intake Total 2100 ml 830 ml 240 ml Balance 2100 ml 830 ml 240 ml Intake Oral 680 ml 240 ml IV Total 2100 ml 150 ml # Voids 4 3 # Bowel Movements 1 2 Result Diagram: 09/07/17 0715 09/07/17 0745 Imaging Last Impressions Chest X-Ray 09/06/17 1027 Signed Impressions: Service Date/Time: Wednesday, September 06, 2017 10:49 - CONCLUSION: 1. No acute cardiopulmonary disease. Sunday Romano MD CT Angiography 09/06/17 0000 Signed Impressions: Service Date/Time: Wednesday, September 06, 2017 14:35 - CONCLUSION: 1. Limited examination without evidence for pulmonary artery embolism to the proximal segmental level. Some distal segmental and subsegmental branches are inadequately opacified for definitive evaluation. 2. Scattered groupings of nodular groundglass opacities in the right upper and lower lobes. Overall pattern is most consistent with an inflammatory/infectious etiology. 3. Subcentimeter bilateral hilar nodes do not meet CT size criteria and are nonspecific but usually reactive. Sunday Romano MD Objective Remarks GENERAL: Well nourished/well developed patient in no apparent distress CARDIOVASCULAR: Regular rate and rhythm without murmurs, gallops or rubs. RESPIRATORY: Bibasilar crackles. GASTROINTESTINAL: Abdomen soft, non-tender, nondistended. Normal active bowel sounds MUSCULOSKELETAL: Extremities without clubbing, cyanosis, withoutedema. NEURO: Alert & Oriented x4 to person, place, time, and situation. 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 Nebulizers when necessary. Patient has negative flu test. However her symptoms are quite consistent with viral syndrome as well. For now and given that she has underlying COPD, severe hypoxia, abnormal CT chest distal segmental and subsegmental branches are inadequately opacified for definitive evaluation. 2. Scattered groupings of nodular groundglass opacities in the right upper and lower lobes. Overall pattern is most consistent with an inflammatory/infectious etiology. 3. Subcentimeter bilateral hilar nodes do not meet CT size criteria and are nonspecific but usually reactive Levofloxacin 750 mg IV every 24 hours. Resume home meds. Monitor fingersticks. Would consult patient's urologist as patient is having hematuria on UA. She does have history of renal cell carcinoma and urology notes reveals that they wanted her to follow up in July with repeat CT. Patient however was lost to follow-up then. DVT prophylaxis with SCD. GI prophylaxis on ranitidine Discharge Planning when clinically improved Hamilton Broderick MD Sep 07, 2017 21:42
[2017-09-08] VITALS (12 sets, daily range): BP systolic 116–155; BP diastolic 61–76; PULSE 66–107; RESP 17–20; TEMP 97.5–99.7; O2SAT 93–98
[2017-09-08] MEDS: LEVOFLOXACIN 750 MG PREMIX INJ 150 ML IV SCH ×2 (00:55→23:12)
[2017-09-08] MEDS: ACETAMINOPHEN/HYDROcodone 325 MG/5 MG TAB PO PRN ×4 (04:00→23:12)
[2017-09-08] MEDS: RESP: IPRATROPIUM 0.5 MG/2.5 ML NEB NEB SCH ×5 (04:17→23:56)
[2017-09-08] MEDS: ONDANSETRON ODT 4 MG TAB PO PRN (05:02)
[2017-09-08] MEDS: ACETAMINOPHEN 325 MG TAB PO PRN ×2 (05:02→12:03)
--- NOTE | 2017-09-08 08:56 | HHI.PR ---
Subjective Remarks This is a pleasant 57 y/o Female who came to ER with SOB, status post Left nephrectomy due to Renal Cell Carcinoma no radiation about six months ago, has DM II, Crohn's Disease, on Prednisone on and off, now on 10 mg daily, Primary GI specialist Doctor Darrell. has COPD, stable in her bedroom, continue Oxygen at 3 L/Min, as per patient she was heavy smoker since she was 15 years of age until 15 years ago when she decreased and smokes only on weekends when she drinks alcohol. Objective Vital Signs Date Time Temp Pulse Resp B/P (MAP) Pulse Ox O2 Delivery O2 Flow Rate FiO2 09/08/17 08:47 Nasal Cannula 3.00 09/08/17 04:20 96 Nasal Cannula 09/08/17 04:00 Nasal Cannula 3.00 09/08/17 04:00 99.7 105 18 155/72 (99) 93 09/08/17 03:47 105 09/08/17 01:45 Nasal Cannula 3.00 09/08/17 00:00 97.5 107 17 152/72 (98) 94 09/08/17 00:00 97 09/07/17 20:00 Nasal Cannula 3.00 09/07/17 20:00 97.9 101 21 138/78 (98) 94 09/07/17 19:54 90 09/07/17 16:00 97.6 73 20 138/76 (96) 98 09/07/17 15:53 94 Nasal Cannula 3.00 09/07/17 12:00 98.4 101 20 154/70 (98) 96 I/O 09/07/17 09/07/17 09/07/17 09/08/17 09/08/17 09/08/17 07:00 15:00 23:00 07:00 15:00 23:00 Intake Total 830 ml 240 ml 100 ml Balance 830 ml 240 ml 100 ml Intake Oral 680 ml 240 ml IV Total 150 ml 100 ml # Voids 4 4 1 # Bowel Movements 1 2 1 Result Diagram: 09/07/17 0715 09/07/17 0745 Imaging Last Impressions Chest X-Ray 09/06/17 1027 Signed Impressions: Service Date/Time: Wednesday, September 06, 2017 10:49 - CONCLUSION: 1. No acute cardiopulmonary disease. Sunday Romano MD CT Angiography 09/06/17 0000 Signed Impressions: Service Date/Time: Wednesday, September 06, 2017 14:35 - CONCLUSION: 1. Limited examination without evidence for pulmonary artery embolism to the proximal segmental level. Some distal segmental and subsegmental branches are inadequately opacified for definitive evaluation. 2. Scattered groupings of nodular groundglass opacities in the right upper and lower lobes. Overall pattern is most consistent with an inflammatory/infectious etiology. 3. Subcentimeter bilateral hilar nodes do not meet CT size criteria and are nonspecific but usually reactive. Sunday Romano MD Procedures None Other Results Laboratory Tests Test 09/06/17 10:50 09/06/17 10:53 09/06/17 14:05 09/07/17 07:15 Prothrombin Time 10.7 SEC Prothromb Time International Ratio 1.1 RATIO Activated Partial Thromboplast Time 30.6 SEC Blood Urea Nitrogen 7 MG/DL Creatinine 0.93 MG/DL Random Glucose 241 MG/DL Total Protein 7.9 GM/DL Albumin 3.6 GM/DL Calcium Level 8.7 MG/DL Alkaline Phosphatase 90 U/L Aspartate Amino Transf (AST/SGOT) 14 U/L Alanine Aminotransferase (ALT/SGPT) 17 U/L Total Bilirubin 0.7 MG/DL Sodium Level 132 MEQ/L Potassium Level 4.0 MEQ/L Chloride Level 98 MEQ/L Carbon Dioxide Level 24.0 MEQ/L Troponin I LESS THAN 0.02 NG/ML B-Type Natriuretic Peptide 66 PG/ML Lactic Acid Level 1.8 mmol/L Urine Color YELLOW Urine Turbidity CLEAR Urine pH 5.5 Urine Specific [place] 1.021 Urine Protein 100 mg/dL Urine Glucose (UA) 1000 mg/dL Urine Ketones 80 mg/dL Urine Occult Blood LARGE Urine Nitrite NEG Urine Bilirubin NEG Urine Urobilinogen LESS THAN 2.0 MG/DL Urine Leukocyte Esterase NEG Urine RBC 41 /hpf Urine WBC 1 /hpf Urine Squamous Epithelial Cells 1 /hpf Urine Bacteria RARE /hpf Urine Mucus FEW /lpf Microscopic Urinalysis Comment CULT NOT INDICATED White Blood Count 14.4 TH/MM3 Red Blood Count 4.83 MIL/MM3 Hemoglobin 15.0 GM/DL Hematocrit 44.4 % Mean Corpuscular Volume 91.9 FL Mean Corpuscular Hemoglobin 31.0 PG Mean Corpuscular Hemoglobin Concent 33.7 % Red Cell Distribution Width 13.3 % Platelet Count 175 TH/MM3 Mean Platelet Volume 7.2 FL Neutrophils (%) (Auto) 82.4 % Lymphocytes (%) (Auto) 9.2 % Monocytes (%) (Auto) 8.2 % Eosinophils (%) (Auto) 0.0 % Basophils (%) (Auto) 0.2 % Neutrophils # (Auto) 11.8 TH/MM3 Lymphocytes # (Auto) 1.3 TH/MM3 Monocytes # (Auto) 1.2 TH/MM3 Eosinophils # (Auto) 0.0 TH/MM3 Basophils # (Auto) 0.0 TH/MM3 CBC Comment DIFF FINAL Differential Comment Test 09/07/17 07:45 Blood Urea Nitrogen 12 MG/DL Creatinine 0.69 MG/DL Random Glucose 150 MG/DL Calcium Level 9.0 MG/DL Sodium Level 138 MEQ/L Potassium Level 3.8 MEQ/L Chloride Level 105 MEQ/L Carbon Dioxide Level 25.6 MEQ/L Anion Gap 7 MEQ/L Estimat Glomerular Filtration Rate 88 ML/MIN Objective Remarks GENERAL: Well nourished/well developed patient in no apparent distress CARDIOVASCULAR: Regular rate and rhythm without murmurs, gallops or rubs. RESPIRATORY: Decreased breath sounds bilateral, mild expiratory wheezing. GASTROINTESTINAL: Abdomen soft, non-tender, nondistended. Normal active bowel sounds MUSCULOSKELETAL: Extremities without clubbing, cyanosis, without edema. NEURO: Alert & Oriented x4 to person, place, time, and situation. Moves all ext x4 Medications and IVs Current Medications Medications (Trade) Dose Ordered Sig/Leonor Route Start Time Stop Time Status Last Admin (NS Flush) 2 ml UNSCH PRN IV FLUSH 09/06/17 16:30 (NS Flush) 2 ml BID IV FLUSH 09/06/17 21:00 09/07/17 19:51 (Narcan Inj) 0.4 mg UNSCH PRN IV PUSH 09/06/17 16:30 (Atrovent Neb) 0.5 mg Q6HR NEB NEB 09/06/17 22:00 09/08/17 08:45 (Atrovent Neb) 0.5 mg Q2HR NEB PRN NEB 09/06/17 16:45 (Asacol Hd Dr) 2,400 mg TID PO 09/06/17 18:00 09/07/17 17:30 (Deltasone) 10 mg DAILY PO 09/07/17 09:00 09/07/17 07:32 (NovoLIN 70/30 INJ) 14 units BID SQ 09/06/17 21:00 09/07/17 10:11 (D50w (Vial) Inj) 50 ml UNSCH PRN IV PUSH 09/06/17 17:15 (Glucagon Inj) 1 mg UNSCH PRN OTHER 09/06/17 17:15 (NovoLOG SUPPLEMENTAL SCALE) 1 ACHS SLIDING SCALE SQ 09/06/17 21:00 09/07/17 17:00 Levofloxacin/ Dextrose 150 ml @ 100 mls/hr Q24H IV 09/07/17 00:00 09/08/17 00:55 (Tylenol) 650 mg Q4H PRN PO 09/06/17 17:30 09/08/17 05:02 ([place] 5-325 Mg) 1 tab Q6H PRN PO 09/06/17 17:30 09/08/17 04:00 (Restoril) 7.5 mg HS PRN PO 09/06/17 17:30 09/07/17 19:51 (Zofran Odt) 4 mg Q6H PRN PO 09/06/17 18:00 09/08/17 05:02 (Pepcid) 20 mg Q12HR PO 09/07/17 09:00 09/07/17 19:51 A/P Assessment and Plan 1. Hypoxia/Pneumonia/COPD exacerbation to continue Bronchodilator, Mucolytic incentive spirometry Oxygen supplementation, had abnormal CT chest distal segmental and subsegmental branches are inadequately opacified for definitive evaluation, Scattered groupings of nodular groundglass opacities in the right upper and lower lobes, Overall pattern is most consistent with an inflammatory/infectious etiology subcentimeter bilateral hilar nodes do not meet CT size criteria, continue Levofloxacin 750 mg daily 2. Hematuria on UA in a patient with Left Nephrectomy for renal cell carcinoma, seen by Urology specialist and recommended follow as outpatient with Doctor John 3. DM II continue home medicines today mild uncontrol adjusted Insulin 70/30 4. Crohn's Disease followed as outpatient by her Primary GI specialist Doctor Darrell, partial Colon resection on Prednisone on and off, tapering dose at this time 5. Tobacco dependence strongly recommended to stop smoking DVT prophylaxis with SCD. contraindicated Pharmacological prophylaxis due to Hematuria. GI prophylaxis on ranitidine Discharge Planning Expected by [email or web address]. Albin Ambrosio MD Sep 08, 2017 08:56
[2017-09-08] MEDS: MESALAMINE HD 800 MG DELAYED RELEASE TAB PO SCH ×3 (09:16→17:23)
[2017-09-08] MEDS: predniSONE 10 MG TAB PO SCH (09:16)
[2017-09-08] MEDS: FAMOTIDINE 20 MG TAB PO SCH ×2 (09:16→21:31)
[2017-09-08] MEDS: INSULIN HUMAN NPH/R 70/30 1,000 UNITS/10 ML VIAL SQ SCH ×2 (09:17→21:31)
[2017-09-08] MEDS: SODIUM CHLORIDE 0.9% FLUSH 10 ML FLUSH IV FLUSH SCH ×2 (09:17→21:00)
[2017-09-08] MEDS: INSULIN ASPART SUPPLEMENTAL SCALE SQ SCH ×4 (09:17→21:32)
[2017-09-08] MEDS ORDERED: INSULIN DETEMIR 100 UNITS/ML VIAL SQ SCH (21:00)
[2017-09-08] MEDS ORDERED: HEPARIN SODIUM - SQ 10,000 UNITS/ML VIAL SQ SCH (21:00)
[2017-09-08] MEDS: TEMAZEPAM 7.5 MG CAP PO PRN (21:31)
[2017-09-08] MEDS: guaiFENesin E.R. 600 MG TAB PO SCH (21:31)
[2017-09-09] VITALS (7 sets, daily range): BP systolic 125–153; BP diastolic 62–72; PULSE 60–80; RESP 16–18; TEMP 97.7–98.2; O2SAT 90–98
[2017-09-09] MEDS: RESP: IPRATROPIUM 0.5 MG/2.5 ML NEB NEB SCH ×3 (03:56→09:07)
[2017-09-09] MEDS: ACETAMINOPHEN/HYDROcodone 325 MG/5 MG TAB PO PRN (05:48)
[2017-09-09] MEDS: INSULIN ASPART SUPPLEMENTAL SCALE SQ SCH ×2 (08:00→12:00)
[2017-09-09] MEDS: SODIUM CHLORIDE 0.9% FLUSH 10 ML FLUSH IV FLUSH SCH (08:21)
[2017-09-09] MEDS: MESALAMINE HD 800 MG DELAYED RELEASE TAB PO SCH ×2 (08:22→12:39)
[2017-09-09] MEDS: guaiFENesin E.R. 600 MG TAB PO SCH (08:22)
[2017-09-09] MEDS: FAMOTIDINE 20 MG TAB PO SCH (08:22)
[2017-09-09] MEDS: predniSONE 10 MG TAB PO SCH (08:22)
--- NOTE | 2017-09-09 08:25 | HHI.PR ---
Subjective Remarks This is a pleasant 57 y/o Female who came to ER with SOB, status post Left nephrectomy due to Renal Cell Carcinoma no radiation about six months ago, has DM II, Crohn's Disease, on Prednisone on and off, now on 10 mg daily, Primary GI specialist Doctor Darrell. has COPD, stable in her bedroom, continue Oxygen at 3 L/Min, as per patient she was heavy smoker since she was 15 years of age until 15 years ago when she decreased and smokes only on weekends when she drinks alcohol. 09/09:Seen in her bedroom in the presence of nurse Miss Batista, stable, no need for oxygen at home, passed her Walk test no nausea, vomit or diarrhea, spent time explaining to the patient the importance to stop smoking, will continue antibiotics bronchodilator, Mucolytic and incentive spirometry. Steroids. Objective Vital Signs Date Time Temp Pulse Resp B/P (MAP) Pulse Ox O2 Delivery O2 Flow Rate FiO2 09/09/17 08:17 97.7 69 18 153/72 (99) 94 09/09/17 06:04 Nasal Cannula 3.00 09/09/17 06:00 98.0 60 16 125/65 (85) 98 09/09/17 04:00 80 09/09/17 00:50 98.0 65 17 130/62 (84) 97 09/09/17 00:15 78 09/08/17 23:57 98 Nasal Cannula 2.50 09/08/17 23:48 Nasal Cannula 3.00 09/08/17 21:30 97.8 72 18 136/61 (86) 98 09/08/17 20:00 Nasal Cannula 3.00 09/08/17 20:00 75 09/08/17 18:37 98 09/08/17 18:30 20 09/08/17 16:50 96 Nasal Cannula 3.00 09/08/17 16:00 97.7 66 20 136/76 (96) 97 09/08/17 14:26 96 Nasal Cannula 3.00 09/08/17 14:25 18 09/08/17 12:00 97.7 79 20 135/65 (88) 96 09/08/17 12:00 85 09/08/17 08:47 Nasal Cannula 3.00 I/O 09/08/17 09/08/17 09/08/17 09/09/17 09/09/17/25/18 07:00 15:00 23:00 07:00 15:00 23:00 Intake Total 100 ml 1585 ml 1150 ml Balance 100 ml 1585 ml 1150 ml Intake Oral 1585 ml 1000 ml IV Total 100 ml 150 ml # Voids 1 4 3 # Bowel Movements 1 1 0 Result Diagram: 09/07/17 0715 09/07/17 0745 Imaging Last Impressions Chest X-Ray 09/06/17 1027 Signed Impressions: Service Date/Time: Wednesday, September 06, 2017 10:49 - CONCLUSION: 1. No acute cardiopulmonary disease. Sunday Romano MD CT Angiography 09/06/17 0000 Signed Impressions: Service Date/Time: Wednesday, September 06, 2017 14:35 - CONCLUSION: 1. Limited examination without evidence for pulmonary artery embolism to the proximal segmental level. Some distal segmental and subsegmental branches are inadequately opacified for definitive evaluation. 2. Scattered groupings of nodular groundglass opacities in the right upper and lower lobes. Overall pattern is most consistent with an inflammatory/infectious etiology. 3. Subcentimeter bilateral hilar nodes do not meet CT size criteria and are nonspecific but usually reactive. Sunday Romano MD Procedures None Other Results Laboratory Tests Test 09/06/17 10:50 09/06/17 10:53 09/06/17 14:05 09/07/17 07:15 Prothrombin Time 10.7 SEC Prothromb Time International Ratio 1.1 RATIO Activated Partial Thromboplast Time 30.6 SEC Blood Urea Nitrogen 7 MG/DL Creatinine 0.93 MG/DL Random Glucose 241 MG/DL Total Protein 7.9 GM/DL Albumin 3.6 GM/DL Calcium Level 8.7 MG/DL Alkaline Phosphatase 90 U/L Aspartate Amino Transf (AST/SGOT) 14 U/L Alanine Aminotransferase (ALT/SGPT) 17 U/L Total Bilirubin 0.7 MG/DL Sodium Level 132 MEQ/L Potassium Level 4.0 MEQ/L Chloride Level 98 MEQ/L Carbon Dioxide Level 24.0 MEQ/L Troponin I LESS THAN 0.02 NG/ML B-Type Natriuretic Peptide 66 PG/ML Lactic Acid Level 1.8 mmol/L Urine Color YELLOW Urine Turbidity CLEAR Urine pH 5.5 Urine Specific [place] 1.021 Urine Protein 100 mg/dL Urine Glucose (UA) 1000 mg/dL Urine Ketones 80 mg/dL Urine Occult Blood LARGE Urine Nitrite NEG Urine Bilirubin NEG Urine Urobilinogen LESS THAN 2.0 MG/DL Urine Leukocyte Esterase NEG Urine RBC 41 /hpf Urine WBC 1 /hpf Urine Squamous Epithelial Cells 1 /hpf Urine Bacteria RARE /hpf Urine Mucus FEW /lpf Microscopic Urinalysis Comment CULT NOT INDICATED White Blood Count 14.4 TH/MM3 Red Blood Count 4.83 MIL/MM3 Hemoglobin 15.0 GM/DL Hematocrit 44.4 % Mean Corpuscular Volume 91.9 FL Mean Corpuscular Hemoglobin 31.0 PG Mean Corpuscular Hemoglobin Concent 33.7 % Red Cell Distribution Width 13.3 % Platelet Count 175 TH/MM3 Mean Platelet Volume 7.2 FL Neutrophils (%) (Auto) 82.4 % Lymphocytes (%) (Auto) 9.2 % Monocytes (%) (Auto) 8.2 % Eosinophils (%) (Auto) 0.0 % Basophils (%) (Auto) 0.2 % Neutrophils # (Auto) 11.8 TH/MM3 Lymphocytes # (Auto) 1.3 TH/MM3 Monocytes # (Auto) 1.2 TH/MM3 Eosinophils # (Auto) 0.0 TH/MM3 Basophils # (Auto) 0.0 TH/MM3 CBC Comment DIFF FINAL Differential Comment Test 09/07/17 07:45 Blood Urea Nitrogen 12 MG/DL Creatinine 0.69 MG/DL Random Glucose 150 MG/DL Calcium Level 9.0 MG/DL Sodium Level 138 MEQ/L Potassium Level 3.8 MEQ/L Chloride Level 105 MEQ/L Carbon Dioxide Level 25.6 MEQ/L Anion Gap 7 MEQ/L Estimat Glomerular Filtration Rate 88 ML/MIN Objective Remarks GENERAL: Well nourished/well developed patient in no apparent distress CARDIOVASCULAR: Regular rate and rhythm without murmurs, gallops or rubs. RESPIRATORY: Decreased breath sounds bilateral, mild expiratory wheezing. GASTROINTESTINAL: Abdomen soft, non-tender, nondistended. Normal active bowel sounds MUSCULOSKELETAL: Extremities without clubbing, cyanosis, without edema. NEURO: Alert & Oriented x4 to person, place, time, and situation. Moves all ext x4 Medications and IVs Current Medications Medications (Trade) Dose Ordered Sig/Leonor Route Start Time Stop Time Status Last Admin (NS Flush) 2 ml UNSCH PRN IV FLUSH 09/06/17 16:30 (NS Flush) 2 ml BID IV FLUSH 09/06/17 21:00 09/08/17 21:00 (Narcan Inj) 0.4 mg UNSCH PRN IV PUSH 09/06/17 16:30 (Atrovent Neb) 0.5 mg Q2HR NEB PRN NEB 09/06/17 16:45 (Asacol Hd Dr) 2,400 mg TID PO 09/06/17 18:00 09/08/17 17:23 (Deltasone) 10 mg DAILY PO 09/07/17 09:00 09/08/17 09:16 (D50w (Vial) Inj) 50 ml UNSCH PRN IV PUSH 09/06/17 17:15 (Glucagon Inj) 1 mg UNSCH PRN OTHER 09/06/17 17:15 (NovoLOG SUPPLEMENTAL SCALE) 1 ACHS SLIDING SCALE SQ 09/06/17 21:00 09/08/17 21:32 Levofloxacin/ Dextrose 150 ml @ 100 mls/hr Q24H IV 09/07/17 00:00 09/08/17 23:12 (Tylenol) 650 mg Q4H PRN PO 09/06/17 17:30 09/08/17 12:03 ([place] 5-325 Mg) 1 tab Q6H PRN PO 09/06/17 17:30 09/09/17 05:48 (Restoril) 7.5 mg HS PRN PO 09/06/17 17:30 09/08/17 21:31 (Zofran Odt) 4 mg Q6H PRN PO 09/06/17 18:00 09/08/17 05:02 (Pepcid) 20 mg Q12HR PO 09/07/17 09:00 09/08/17 21:31 (Atrovent Neb) 0.5 mg Q4HR NEB NEB 09/08/17 20:00 09/09/17 03:56 (Mucinex Er) 600 mg BID PO 09/08/17 21:00 09/08/17 21:31 (NovoLIN 70/30 INJ) 16 units BID SQ 09/08/17 21:00 09/08/17 21:31 A/P Assessment and Plan 1. Hypoxia/Pneumonia/COPD exacerbation to continue Bronchodilator, Mucolytic incentive spirometry Oxygen supplementation, had abnormal CT chest distal segmental and subsegmental branches are inadequately opacified for definitive evaluation, Scattered groupings of nodular groundglass opacities in the right upper and lower lobes, Overall pattern is most consistent with an inflammatory/infectious etiology subcentimeter bilateral hilar nodes do not meet CT size criteria, continue Levofloxacin 750 mg daily will continue at home for four more days. continue tapering dosages of steroids at home. 2. Hematuria on UA in a patient with Left Nephrectomy for renal cell carcinoma, seen by Urology specialist and recommended follow as outpatient with Doctor John 3. DM II continue home medicines today mild uncontrol adjusted Insulin 70/30 will continue Home dosages on discharge she developed some Hypoglycemia during her stay but improved when ate. 4. Crohn's Disease followed as outpatient by her Primary GI specialist Doctor Darrell, partial Colon resection on Prednisone on and off, tapering dose at this time 5. Tobacco dependence strongly recommended to stop smoking DVT prophylaxis with SCD. contraindicated Pharmacological prophylaxis due to Hematuria. GI prophylaxis on ranitidine Discharge Planning Discharge Home today passed her walk test does not need Oxygen by now. Albin Ambrosio MD Sep 09, 2017 08:25
[2017-09-09] MEDS: INSULIN HUMAN NPH/R 70/30 1,000 UNITS/10 ML VIAL SQ SCH (09:00)
[2017-09-09] MEDS ORDERED: ACETAMIN 325 MG/BUTALBITAL 50 MG/CAFFEINE 40 MG TAB PO PRN (09:30)
[2017-09-09] MEDS ORDERED: BUDESONIDE-FORMOTEROL 160/4.5 MCG INHALER INH SCH (09:30)
[2017-09-09] MEDS ORDERED: Budeson-Formot 160-4.5 Mcg Inh INH (11:24)
[2017-09-09] MEDS ORDERED: guaiFENesin ER PO (11:24)
[2017-09-09] MEDS ORDERED: FAMO20TA2 PO (11:24)
[2017-09-09] MEDS ORDERED: Acet-Butal-Caff 325-50-40 Mg PO (11:24)
--- NOTE | 2017-09-09 11:25 | HHI.DS ---
Discharge Summary Admission Date Sep 06, 2017 at 16:07 Discharge Date: Sep 09, 2017 Admitting Diagnosis hypoxia (1) COPD exacerbation ICD Code: J44.1 - Chronic obstructive pulmonary disease with (acute) exacerbation Diagnosis: Principal Procedures None Brief History - From Admission History from patient, ER physician communication, and review of medical records. started on wednesday, sob no fever no cough achy all over no n/v/d] no blood frequent urination , started only on wednesday - no burning or pain has only one kidney= left nephrectomy due to cancer- no chemo, no radiation- about 6 months no dizziness or syncope no periperhal edema no pillow orthopnea had fever here , no sick contact no travels does not work in [place] CBC/BMP: 09/07/17 0715 09/07/17 0745 Significant Findings Laboratory Tests Test 09/06/17 14:05 09/06/17 21:05 09/07/17 07:15 09/07/17 07:45 Urine Protein 100 mg/dL (NEG-TRACE) Urine Glucose (UA) 1000 mg/dL (NEG) Urine Ketones 80 mg/dL (NEG) Urine Occult Blood LARGE (NEG) Urine RBC 41 /hpf (0-3) Urine Bacteria RARE /hpf (NONE) Urine Mucus FEW /lpf (OCC) Random Glucose 469 MG/DL (74-106) 150 MG/DL (74-106) White Blood Count 14.4 TH/MM3 (4.0-11.0) Neutrophils (%) (Auto) 82.4 % (16.0-70.0) Monocytes (%) (Auto) 8.2 % (0.0-8.0) Neutrophils # (Auto) 11.8 TH/MM3 (1.8-7.7) Monocytes # (Auto) 1.2 TH/MM3 (0-0.9) Estimat Glomerular Filtration Rate 88 ML/MIN (>89) Imaging Last Impressions Chest X-Ray 09/06/17 1027 Signed Impressions: Service Date/Time: Wednesday, September 06, 2017 10:49 - CONCLUSION: 1. No acute cardiopulmonary disease. Sunday Romano MD CT Angiography 09/06/17 0000 Signed Impressions: Service Date/Time: Wednesday, September 06, 2017 14:35 - CONCLUSION: 1. Limited examination without evidence for pulmonary artery embolism to the proximal segmental level. Some distal segmental and subsegmental branches are inadequately opacified for definitive evaluation. 2. Scattered groupings of nodular groundglass opacities in the right upper and lower lobes. Overall pattern is most consistent with an inflammatory/infectious etiology. 3. Subcentimeter bilateral hilar nodes do not meet CT size criteria and are nonspecific but usually reactive. Sunday Romano MD PE at Discharge GENERAL: Well nourished/well developed patient in no apparent distress CARDIOVASCULAR: Regular rate and rhythm without murmurs, gallops or rubs. RESPIRATORY: Decreased breath sounds bilateral, mild expiratory wheezing. GASTROINTESTINAL: Abdomen soft, non-tender, nondistended. Normal active bowel sounds MUSCULOSKELETAL: Extremities without clubbing, cyanosis, without edema. NEURO: Alert & Oriented x4 to person, place, time, and situation. Moves all ext x4 Hospital Course This is a pleasant 57 y/o Female who came to ER with SOB, status post Left nephrectomy due to Renal Cell Carcinoma no radiation about six months ago, has DM II, Crohn's Disease, on Prednisone on and off, now on 10 mg daily, Primary GI specialist Doctor Darrell. has COPD, stable in her bedroom, continue Oxygen at 3 L/Min, as per patient she was heavy smoker since she was 15 years of age until 15 years ago when she decreased and smokes only on weekends when she drinks alcohol. 09/09:Seen in her bedroom in the presence of nurse Miss Batista, stable, no need for oxygen at home, passed her Walk test no nausea, vomit or diarrhea, spent time explaining to the patient the importance to stop smoking, will continue antibiotics bronchodilator, Mucolytic and incentive spirometry. Steroids. Assessment and Plan 1. Hypoxia/Pneumonia/COPD exacerbation to continue Bronchodilator, Mucolytic incentive spirometry Oxygen supplementation, had abnormal CT chest distal segmental and subsegmental branches are inadequately opacified for definitive evaluation, Scattered groupings of nodular groundglass opacities in the right upper and lower lobes, Overall pattern is most consistent with an inflammatory/infectious etiology subcentimeter bilateral hilar nodes do not meet CT size criteria, continue Levofloxacin 750 mg daily will continue at home for four more days. continue tapering dosages of steroids at home. 2. Hematuria on UA in a patient with Left Nephrectomy for renal cell carcinoma, seen by Urology specialist and recommended follow as outpatient with Doctor John 3. DM II continue home medicines today mild uncontrol adjusted Insulin 70/30 will continue Home dosages on discharge she developed some Hypoglycemia during her stay but improved when ate. 4. Crohn's Disease followed as outpatient by her Primary GI specialist Doctor Darrell, partial Colon resection on Prednisone on and off, tapering dose at this time 5. Tobacco dependence strongly recommended to stop smoking DVT prophylaxis with SCD. contraindicated Pharmacological prophylaxis due to Hematuria. GI prophylaxis on ranitidine Discharge Planning Discharge Home today passed her walk test does not need Oxygen by now. Pt Condition on Discharge: Good Discharge Disposition: Discharge Home Discharge Time: <= 30 minutes Discharge Instructions DIET: Follow Instructions for: Heart Healthy Diet, Diabetic Diet Activities you can perform: Regular-No Restrictions Albin Ambrosio MD Sep 09, 2017 11:25
[2017-09-09] MEDS ORDERED: LEVA750T9 PO (11:26)
== END 2017-09-09 12:57 | disposition home or self-care (01) | DRG 190 ==
LOC: NEPE 09:57 → NEDA 16:07 → N04B 17:04
PROVIDERS: ADMIT Internal Medicine; ATTEND Internal Medicine
DX: J44.1 Chronic obstructive pulmonary disease with (acute) exacerbation (principal); J18.9 Pneumonia, unspecified organism; E11.649 Type 2 diabetes mellitus with hypoglycemia without coma; K50.90 Crohn's disease, unspecified, without complications; J44.0 Chronic obstructive pulmonary disease with (acute) lower respiratory infection; R09.02 Hypoxemia; R00.0 Tachycardia, unspecified; R31.9 Hematuria, unspecified; B34.9 Viral infection, unspecified; F17.210 Nicotine dependence, cigarettes, uncomplicated; I10 Essential (primary) hypertension; K21.9 Gastro-esophageal reflux disease without esophagitis; Z79.52 Long term (current) use of systemic steroids; Z90.5 Acquired absence of kidney; Z85.528 Personal history of other malignant neoplasm of kidney; R35.0 Frequency of micturition; Z79.4 Long term (current) use of insulin
CPT/HCPCS: 71045; 71275; 80048; 80053; 81001; 82947; 82948; 83605; 83880; 84484; 85025; 85610; 85730; 87040; 87804; 93005; 94150; 94618; 94640; 94664; 96361; 96365; 96366; 96375; J1815; J1885; J1956; J2543; J2930; J7030; J7512; J7644; Q9967

== ENCOUNTER 2017-12-06 10:41 | Emergency (ER) | payer OTHER ==
[~2017-12-06] VITALS: Ht 170.2 cm; Wt 82.0 kg
[~2017-12-06 10:41] MED LIST changes: +Acet-Butal-Caff 325-50-40 Mg PO; +Budeson-Formot 160-4.5 Mcg Inh INH; +FAMO20TA2 PO; +LEVA750T9 PO; +guaiFENesin ER PO
[2017-12-06] MEDS ORDERED: IODIXANOL 320 MG/ML 10 ML VIAL (for Rad CT) IVCONTRAST ONE (10:42)
[2017-12-06 10:46] VITALS: BP 154/95; PULSE 90; RESP 16; TEMP 97.9; O2SAT 98
[2017-12-06] MEDS ORDERED: PRED10 PO (11:47)
[2017-12-06 12:12] LABS: AUTOMATED NEUTROPHIL # 7.2 TH/MM3 (1.8-7.7); BASOPHIL # 0.1 TH/MM3 (0-0.2); BASOPHIL % 0.8 % (0.0-2.0); EOSINOPHIL # 0.2 TH/MM3 (0-0.4); EOSINOPHIL % 1.8 % (0.0-4.0); HEMOGLOBIN 15.6 GM/DL (11.6-15.3); LYMPH % 25.2 % (9.0-44.0); LYMPHOCYTE # 2.8 TH/MM3 (1.0-4.8); MEAN CELL VOLUME 90.9 FL (80.0-100.0); MEAN CORPUSCULAR HEMOGLOBIN 30.8 PG (27.0-34.0); MEAN CORPUSCULAR HGB CONC 33.9 % (32.0-36.0); MEAN PLATELET VOLUME 7.3 FL (7.0-11.0); MONO % 6.6 % (0.0-8.0); MONOCYTE # 0.7 TH/MM3 (0-0.9); NEUT % 65.6 % (16.0-70.0); PLATELET COUNT 276 TH/MM3 (150-450); RED BLOOD COUNT 5.06 MIL/MM3 (4.00-5.30); RED CELL DISTRIBUTION WIDTH 13.8 % (11.6-17.2)
[2017-12-06 12:24] LABS: PROTHROMBIN TIME - PATIENT 10.1 SEC (9.8-11.6)
[2017-12-06 12:30] LABS: BACTERIA, URINE RARE /hpf; BILIRUBIN, URINE NEG (NEG); BLOOD, URINE NEG (NEG); GLUCOSE,URINE 70 mg/dL (NEG); HYALINE CAST, URINE 8 /lpf (RARE); KETONE, URINE NEG (NEG); MUCUS URINE FEW /lpf (OCC); NITRITE,URINE NEG (NEG); PH, URINE 5.5 (5.0-8.5); SQUAMOUS EPITHELIAL CELL URINE 3 /hpf (0-5); URINE COLOR YELLOW (YELLW/STRAW); URINE LEUKOCYTE ESTERASE NEG (NEG)
[2017-12-06 12:31] LABS: ALKALINE PHOSPHATASE 104 U/L (45-117); TOTAL BILIRUBIN ADULT 0.7 MG/DL (0.2-1.0); TOTAL PROTEIN 7.8 GM/DL (6.4-8.2)
[2017-12-06 12:35] LABS: ALBUMIN 3.6 GM/DL (3.4-5.0); ALT (GPT) 29 U/L (10-53); AST (GOT) 15 U/L (15-37); BICARBONATE 21.6 MEQ/L (21.0-32.0); BLOOD UREA NITROGEN 9 MG/DL (7-18); CALCIUM 9.3 MG/DL (8.5-10.1); CHLORIDE 105 MEQ/L (98-107); CREATININE 0.96 MG/DL (0.50-1.00); GLOMERULAR FILTRATION RATE 60 ML/MIN (>89); GLUCOSE,RANDOM 189 MG/DL (74-106); SODIUM (NA) 138 MEQ/L (136-145)
[2017-12-06] MEDS ORDERED: SODIUM CHLOR 0.9% 1000 ML INJ 1,000 ML IV SCH (12:37)
[2017-12-06] MEDS ORDERED: SODIUM CHLORIDE 0.9% FLUSH 10 ML FLUSH IV FLUSH PRN (12:45)
[2017-12-06] MEDS ORDERED: KETOROLAC TROMETHAMINE 30 MG/ML (IVP) VIAL IVP ONE (12:45)
[2017-12-06] MEDS ORDERED: ONDANSETRON HCL 4 MG/2 ML VIAL IVP ONE (12:45)
--- NOTE | 2017-12-06 12:50 | PD ---
HPI Chief Complaint: Abdominal Pain Time Seen by Provider: 11:42 Travel History International Travel<30 days: No Contact w/Intl Traveler<30days: No Traveled to known affect area: No History of Present Illness HPI 57-year-old female presents to the emergency department with complaint of generalized abdominal pain and back pain since Wednesday. She has history of Crohn 's disease. Reports worsening of symptoms yesterday and today. Says the pain feels like her "typical Crohn's" pain. Reports nausea without vomiting. Says she always has diarrhea. Denies hematochezia. Denies dysuria, hematuria. Rates pain 8/10. Has been taking prednisone 30 mg daily for her Crohn's disease and an antiemetic for symptom management. Pain is worse with movement. Better at rest. History of cholecystectomy, intestinal resection, and left kidney removal secondary to cancer. Denies anticoagulant therapy. Primary care provider is Dr. Baldwin. GI is Dr. Ireland. Allergies as listed on the chart. History of Crohn's disease, kidney stones, IDDM, COPD. Has no other medical complaints. No other modifying factors or associated signs and symptoms. PFSH Past Medical History Arthritis: No Asthma: No Autoimmune Disease: No Blood Disorders: No Anxiety: Yes (Some in the past.) Depression: No Heart Rhythm Problems: No Cancer: Yes (Kidney) Cardiovascular Problems: No High Cholesterol: No Chemotherapy: No Chest Pain: No Congestive Heart Failure: No COPD: No Cerebrovascular Accident: No Diabetes: Yes Patient Takes Glucophage: No Diminished Hearing: No Endocrine: Yes Gastrointestinal Disorders: Yes (chrons disease) GERD: Yes Glaucoma: No Genitourinary: Yes Headaches: No Hepatitis: No Hiatal Hernia: No Hypertension: Yes Immune Disorder: No Implanted Vascular Access Dvce: Yes Kidney Stones: Yes Musculoskeletal: Yes Neurologic: Yes Psychiatric: No Reproductive: No Respiratory: No Immunizations Current: Yes Migraines: Yes Myocardial Infarction: No Radiation Therapy: No Renal Failure: No Seizures: No Sickle Cell Disease: No Sleep Apnea: No Thyroid Disease: No Ulcer: No ?: Not Menopausal: Yes : 1 : 1 Past Surgical History Abdominal Surgery: Yes (intestinal resection) AICD: No Appendectomy: No Arteriovenous Shunt: No Body Medical Devices: HARDWARE IN NECK Cardiac Surgery: No Cholecystectomy: Yes Ear Surgery: No Endocrine Surgery: No Eye Surgery: No Genitourinary Surgery: No Gynecologic Surgery: No Insulin Pump: No Joint Replacement: No Neurologic Surgery: Yes (NECK SURGERY,) Oral Surgery: No Pacemaker: No Thoracic Surgery: No Other Surgery: Yes (TENDON RELEASE LEFT THUMB) Social History Alcohol Use: Yes (weekends ) Tobacco Use: Yes (SMOKES WHEN DRINKING) Substance Use: No Allergies-Medications (Allergen,Severity, Reaction): Coded Allergies: infliximab (Unverified Allergy, Severe, Anaphylaxis, 12/06/17) infliximab-dyyb (Unverified Allergy, Severe, Anaphylaxis, 12/06/17) azathioprine (Unverified Allergy, Intermediate, HIVES, 12/06/17) Reported Meds & Prescriptions Reported Meds & Active Scripts Active Deltasone (Prednisone) 20 Mg Tab 20 Mg PO DAILY 5 Days [Budeson-Formot 160-4.5 Mcg Inh] 60 PUFF Aero 1 Puff INH Q12HR Famotidine 20 Mg Tab 20 Mg PO Q12HR Reported Prednisone 10 Mg Tab 30 Mg PO DAILY Zohydro ER (Hydrocodone ER) 10 Mg Caper 10 Mg PO QID Novolin 70-30 Inj (Insulin Human Isoph/Insulin Regular) 1,000 Unit/10 Ml Vial 20 Units SQ BID Zofran (Ondansetron HCl) 4 Mg Tab 4 Mg PO Q6HR PRN Review of Systems Except as stated in HPI: all other systems reviewed are Neg Physical Exam Narrative GENERAL: Well-nourished, well-developed female patient, in no acute distress; afebrile SKIN: Warm and dry. HEAD: Atraumatic. Normocephalic. EYES: Pupils equal and round. No scleral icterus. No injection or drainage. ENT: Mucosa pink and moist. Airway patent. NECK: Trachea midline. CARDIOVASCULAR: Regular rate and rhythm. No murmur appreciated. RESPIRATORY: No accessory muscle use. Clear to auscultation. Breath sounds equal bilaterally. GASTROINTESTINAL: Abdomen soft, generalized tenderness on palpation all quadrants, nondistended. Hepatic and splenic margins not palpable. Bowel sounds are active 4 quadrants. Nonrigid. No guarding. BACK: No CVA tenderness. MUSCULOSKELETAL: No obvious deformities. No clubbing. No cyanosis. No edema. NEUROLOGICAL: Awake and alert. Oriented 3. No obvious cranial nerve deficits. Motor grossly within normal limits. Normal speech. PSYCHIATRIC: Appropriate mood and affect; insight and judgment normal. Data Data Last Documented VS Vital Signs Date Time Temp Pulse Resp B/P (MAP) Pulse Ox O2 Delivery O2 Flow Rate FiO2 12/06/17 15:57 74 18 127/66 (86) 96 Room Air 12/06/17 10:46 97.9 Orders Orders Complete Blood Count With Diff (12/06/17 11:43) Comprehensive Metabolic Panel (12/06/17 11:43) Lipase (12/06/17 11:43) Prothrombin Time / Inr (Pt) (12/06/17 11:43) Act Partial Throm Time (Ptt) (12/06/17 11:43) Urinalysis - C+S If Indicated (12/06/17 11:43) Iv Access Insert/Monitor (12/06/17 11:43) Ondansetron Inj (Zofran Inj) (12/06/17 12:45) Sodium Chlor 0.9% 1000 Ml Inj (Ns 1000 M (12/06/17 12:37) Sodium Chloride 0.9% Flush (Ns Flush) (12/06/17 12:45) Ketorolac Inj (Toradol Inj) (12/06/17 12:45) Ct Abd/Pel W Iv Contrast(Rout) (12/06/17 12:37) Iodixanol 320 Inj (Rad Ct) (Visipaque 32 (12/06/17 10:42) Ed Discharge Order (12/06/17 16:56) Labs Laboratory Tests Test 12/06/17 11:55 12/06/17 11:58 White Blood Count 11.0 TH/MM3 Red Blood Count 5.06 MIL/MM3 Hemoglobin 15.6 GM/DL Hematocrit 46.0 % Mean Corpuscular Volume 90.9 FL Mean Corpuscular Hemoglobin 30.8 PG Mean Corpuscular Hemoglobin Concent 33.9 % Red Cell Distribution Width 13.8 % Platelet Count 276 TH/MM3 Mean Platelet Volume 7.3 FL Neutrophils (%) (Auto) 65.6 % Lymphocytes (%) (Auto) 25.2 % Monocytes (%) (Auto) 6.6 % Eosinophils (%) (Auto) 1.8 % Basophils (%) (Auto) 0.8 % Neutrophils # (Auto) 7.2 TH/MM3 Lymphocytes # (Auto) 2.8 TH/MM3 Monocytes # (Auto) 0.7 TH/MM3 Eosinophils # (Auto) 0.2 TH/MM3 Basophils # (Auto) 0.1 TH/MM3 CBC Comment DIFF FINAL Differential Comment Prothrombin Time 10.1 SEC Prothromb Time International Ratio 1.0 RATIO Activated Partial Thromboplast Time 27.7 SEC Blood Urea Nitrogen 9 MG/DL Creatinine 0.96 MG/DL Random Glucose 189 MG/DL Total Protein 7.8 GM/DL Albumin 3.6 GM/DL Calcium Level 9.3 MG/DL Alkaline Phosphatase 104 U/L Aspartate Amino Transf (AST/SGOT) 15 U/L Alanine Aminotransferase (ALT/SGPT) 29 U/L Total Bilirubin 0.7 MG/DL Sodium Level 138 MEQ/L Potassium Level 4.2 MEQ/L Chloride Level 105 MEQ/L Carbon Dioxide Level 21.6 MEQ/L Anion Gap 11 MEQ/L Estimat Glomerular Filtration Rate 60 ML/MIN Lipase 119 U/L Urine Color YELLOW Urine Turbidity HAZY Urine pH 5.5 Urine Specific [place] 1.025 Urine Protein 30 mg/dL Urine Glucose (UA) 70 mg/dL Urine Ketones NEG mg/dL Urine Occult Blood NEG Urine Nitrite NEG Urine Bilirubin NEG Urine Urobilinogen 2.0 MG/DL Urine Leukocyte Esterase NEG Urine RBC 1 /hpf Urine WBC 2 /hpf Urine Squamous Epithelial Cells 3 /hpf Urine Bacteria RARE /hpf Urine Hyaline Casts 8 /lpf Urine Mucus FEW /lpf Microscopic Urinalysis Comment CULT NOT INDICATED MDM Medical Decision Making Medical Screen Exam Complete: Yes Emergency Medical Condition: Yes Medical Record Reviewed: Yes Differential Diagnosis Crohn's disease, urinary tract infection, pyelonephritis, cholelithiasis Narrative Course 57-year-old female with history of Crohn's disease with generalized abdominal pain. CBC, CMP, coags, lipase, urinalysis, CT abdomen/pelvis, IV, IV fluids, Toradol, Zofran ordered. 1239: CBC, CMP, lipase, coags unremarkable. Urinalysis without signs of infection. 1555: CT abdomen/pelvis conclude: Last 24 hours Impressions Abdomen/Pelvis CT 12/06/17 1237 Signed Impressions: Service Date/Time: Wednesday, December 06, 2017 13:28 - CONCLUSION: 1. Status post left nephrectomy. The right kidney remains unremarkable except for 2 tiny nonobstructing 1 mm calculi 2. Postsurgical changes involving the anterior abdominal wall musculature with scarring. There is a single loop of small bowel which comes in contact with this area which is bulge anteriorly. The bowel demonstrates apparent mild circumferential wall thickening but no definite inflammatory change. No oral contrast was given limiting the sensitivity of the exam. 3. There several small central mesenteric lymph nodes which appear mildly more prominent. These measure up to approximately 1.2 cm in greatest diameter. These are nonspecific. Jordan Hernandez MD Patient provided copy of the CT report. Dr. Chandra evaluated patient recommended to follow-up with GI. Patient requested increase in prednisone and Dr. Chandra agreed to a short course. Prednisone prescribed for home. Instructed patient to follow-up with [facility] still operator within 1 day. Instructed patient to follow up with primary care provider. Patient verbalizes understanding and agreement with treatment plan. Patient is medically cleared and stable for discharge. Discussed reasons to return to the emergency department. Patient agrees with treatment plan. The patients vital signs are stable and the patient is stable for outpatient follow-up and treatment. Patient discharged home, stable and in no acute distress. Diagnosis Primary Impression: Abdominal pain Qualified Codes: R10.9 - Unspecified abdominal pain Referrals: Cat Skinner Primary Care Physician Patient Instructions: Abdominal Pain (ED), General Instructions Additional Instructions: Follow-up with [facility] still operator; call tomorrow to make an appointment Follow-up with Med/Other Pt SpecificInfo: Prescription(s) given Scripts Prednisone (Deltasone) 20 Mg Tab 20 MG PO DAILY for 5 Days, #5 TAB 0 Refills Prov: Christine Enriquez 12/06/17 Disposition: 01 DISCHARGE HOME Condition: Stable Christine Enriquez Dec 06, 2017 12:50
--- NOTE | 2017-12-06 14:02 | RADRPT ---
EXAM DATE/TIME: 12/06/2017 13:28 [facility] COMPARISON: CT ABDOMEN & PELVIS W CONTRAST, November 04, 2016, 12:56. INDICATIONS : Abdominal and back pain, nausea and vomiting IV CONTRAST: 50 cc Visipaque (iodixanol) IV ORAL CONTRAST: No oral contrast ingested. RADIATION DOSE: 8.24 CTDIvol (mGy) MEDICAL HISTORY : Crohn's disease. Renal calculi. Kidney cancer, diabetes SURGICAL HISTORY : Nephrectomy, left. Cholecystectomy.Colon resection. ENCOUNTER: Initial ACUITY: 1 day PAIN SCALE: 7/10 LOCATION: Abdomen TECHNIQUE: Volumetric scanning of the abdomen and pelvis was performed. Using automated exposure control and ad justment of the mA and/or kV according to patient size, radiation dose was kept as low as reasonably achievable to obtain optimal diagnostic quality images. DICOM format image data is available electro nically for review and comparison. FINDINGS: LOWER LUNGS: The visualized lower lungs are clear. LIVER: Homogeneous density without lesion. There is no dilation of the biliary tree. There is mild hepatic steatosis again noted. Patient status post cholecystectomy. SPLEEN: Normal size without lesion. PANCREAS: Within normal limits. KIDNEYS: Status post interval left nephrectomy. The right kidney remains unremarkable except for 2 tiny less t bullock 1 mm nonobstructing calculi. ADRENAL GLANDS: Within normal limits. VASCULAR: There is no aortic aneurysm. BOWEL/MESENTERY: No oral contrast was given and then the sensitivity of the exam. The small bowel is nondilated. There is a single loop that extends into a small anterior abdominal wall bulge is apparent mild wall thick ening. This is best seen on axial image #51. Several stable small mesenteric lymph nodes again noted which appear slightly more prominent.. There is no free intraperitoneal air or fluid. ABDOMINAL WALL: Postsurgical changes and scarring are noted along the anterior abdominal wall musculature. RETROPERITONEUM: There is no lymphadenopathy. BLADDER: No wall thickening or mass. REPRODUCTIVE: Within normal limits. INGUINAL: There is no lymphadenopathy or hernia. MUSCULOSKELETAL: Within normal limits for patient age. CONCLUSION: 1. Status post left nephrectomy. The right kidney remains unremarkable except for 2 tiny nonobstructi ng 1 mm calculi 2. Postsurgical changes involving the anterior abdominal wall musculature with scarring. There is a s tom loop of small bowel which comes in contact with this area which is bulge anteriorly. The bowel demonstrates apparent mild circumferential wall thickening but no definite inflammatory change. No or al contrast was given limiting the sensitivity of the exam. 3. There several small central mesenteric lymph nodes which appear mildly more prominent. These measu re up to approximately 1.2 cm in greatest diameter. These are nonspecific. Jordan Hernandez MD on December 06, 2017 at 13:52 Board Certified Radiologist. This report was verified electronically.
[2017-12-06 15:57] VITALS: BP 127/66; PULSE 74; RESP 18; O2SAT 96
[2017-12-06] MEDS ORDERED: PRED-503 PO (16:26)
--- NOTE | 2017-12-06 16:26 | PD ---
Data Data Last Documented VS Vital Signs Date Time Temp Pulse Resp B/P (MAP) Pulse Ox O2 Delivery O2 Flow Rate FiO2 12/06/17 15:57 74 18 127/66 (86) 96 Room Air 12/06/17 10:46 97.9 Orders Orders Complete Blood Count With Diff (12/06/17 11:43) Comprehensive Metabolic Panel (12/06/17 11:43) Lipase (12/06/17 11:43) Prothrombin Time / Inr (Pt) (12/06/17 11:43) Act Partial Throm Time (Ptt) (12/06/17 11:43) Urinalysis - C+S If Indicated (12/06/17 11:43) Iv Access Insert/Monitor (12/06/17 11:43) Ondansetron Inj (Zofran Inj) (12/06/17 12:45) Sodium Chlor 0.9% 1000 Ml Inj (Ns 1000 M (12/06/17 12:37) Sodium Chloride 0.9% Flush (Ns Flush) (12/06/17 12:45) Ketorolac Inj (Toradol Inj) (12/06/17 12:45) Ct Abd/Pel W Iv Contrast(Rout) (12/06/17 12:37) Iodixanol 320 Inj (Rad Ct) (Visipaque 32 (12/06/17 10:42) Labs Laboratory Tests Test 12/06/17 11:55 12/06/17 11:58 White Blood Count 11.0 TH/MM3 Red Blood Count 5.06 MIL/MM3 Hemoglobin 15.6 GM/DL Hematocrit 46.0 % Mean Corpuscular Volume 90.9 FL Mean Corpuscular Hemoglobin 30.8 PG Mean Corpuscular Hemoglobin Concent 33.9 % Red Cell Distribution Width 13.8 % Platelet Count 276 TH/MM3 Mean Platelet Volume 7.3 FL Neutrophils (%) (Auto) 65.6 % Lymphocytes (%) (Auto) 25.2 % Monocytes (%) (Auto) 6.6 % Eosinophils (%) (Auto) 1.8 % Basophils (%) (Auto) 0.8 % Neutrophils # (Auto) 7.2 TH/MM3 Lymphocytes # (Auto) 2.8 TH/MM3 Monocytes # (Auto) 0.7 TH/MM3 Eosinophils # (Auto) 0.2 TH/MM3 Basophils # (Auto) 0.1 TH/MM3 CBC Comment DIFF FINAL Differential Comment Prothrombin Time 10.1 SEC Prothromb Time International Ratio 1.0 RATIO Activated Partial Thromboplast Time 27.7 SEC Blood Urea Nitrogen 9 MG/DL Creatinine 0.96 MG/DL Random Glucose 189 MG/DL Total Protein 7.8 GM/DL Albumin 3.6 GM/DL Calcium Level 9.3 MG/DL Alkaline Phosphatase 104 U/L Aspartate Amino Transf (AST/SGOT) 15 U/L Alanine Aminotransferase (ALT/SGPT) 29 U/L Total Bilirubin 0.7 MG/DL Sodium Level 138 MEQ/L Potassium Level 4.2 MEQ/L Chloride Level 105 MEQ/L Carbon Dioxide Level 21.6 MEQ/L Anion Gap 11 MEQ/L Estimat Glomerular Filtration Rate 60 ML/MIN Lipase 119 U/L Urine Color YELLOW Urine Turbidity HAZY Urine pH 5.5 Urine Specific [place] 1.025 Urine Protein 30 mg/dL Urine Glucose (UA) 70 mg/dL Urine Ketones NEG mg/dL Urine Occult Blood NEG Urine Nitrite NEG Urine Bilirubin NEG Urine Urobilinogen 2.0 MG/DL Urine Leukocyte Esterase NEG Urine RBC 1 /hpf Urine WBC 2 /hpf Urine Squamous Epithelial Cells 3 /hpf Urine Bacteria RARE /hpf Urine Hyaline Casts 8 /lpf Urine Mucus FEW /lpf Microscopic Urinalysis Comment CULT NOT INDICATED MDM Supervised Visit with CORNEL: Yes Narrative Course I, Dr. Chandra, have reviewed the advance practice practitioner's documentation and am in agreement, met with the patient face to face, made the diagnosis, and the medical decision making was done by me. *My assessment and Findings: Patient's abdomen is soft and benign and nontender. I reviewed the entirety of her workup. Her some CT findings we discussed but nothing rising to a level of urgent hospitalization. She does have a GI physician that I instructed her to call tomorrow to get follow-up. The patient wants to increase her prednisone. Labs are normal Bill Chandra MD Dec 06, 2017 16:26
== END 2017-12-06 17:02 | disposition home or self-care (01) ==
LOC: NEPD 10:41
DX: R10.9 Unspecified abdominal pain (principal); M54.9 Dorsalgia, unspecified; R11.0 Nausea; R19.7 Diarrhea, unspecified; K50.90 Crohn's disease, unspecified, without complications; E11.9 Type 2 diabetes mellitus without complications; K21.9 Gastro-esophageal reflux disease without esophagitis; J44.9 Chronic obstructive pulmonary disease, unspecified; I10 Essential (primary) hypertension; Z72.0 Tobacco use; Z79.4 Long term (current) use of insulin; Z87.442 Personal history of urinary calculi; Z86.69 Personal history of other diseases of the nervous system and sense organs; Z85.528 Personal history of other malignant neoplasm of kidney
CPT/HCPCS: 74177; 80053; 81001; 83690; 85025; 85610; 85730; 96361; 96374; 96375; 99284; J1885; J2405; J7030; Q9967